=== PATIENT | female | born 1970 | race Caucasian/White ===

== ENCOUNTER → 2017-05-18 09:27 | Outpatient (POV) | payer BC, SELFPAY ==
--- NOTE | 2017-05-18 09:47 | HMH.PAINSOAP ---
[facility] Pain Management SOAP Note Subjective:: Patient's pleasant 46-year-old white female that returns her clinic today with a complaint of extreme right hip pain. She describes the right hip pain as constant, sharp, stabbing, dull, aching patient reports the pain intensifies with sitting. She rates her pain 10/10. Upon examination the patient has extreme point tenderness over the right SI joint. Patient does report some radicular symptoms into the anterior right pelvis as well as right anterior thigh. We discussed right sacroiliitis. We discussed right SI joint injection. We do medically manage the patient with [place] 10 mg 1 p.o. 4 times daily. She reports the [place] does help with the right hip pain to some degree. However, her pain has become extreme over the last week. Objective:: Patient is awake alert oriented ?3. In no acute distress. Flexion extension of the lumbar spine somewhat guarded secondary to pain. Deep tendon reflexes upper and lower extremities normal. Motor strength upper and lower extremities normal. There is no gross sensory deficit. Gait is normal. Assessment:: Degenerative disc disease lumbar spine multiple levels. Lumbar radiculopathy symptoms.. Chronic pain syndrome. Myofascial pain syndrome. Right sacroiliitis. Plan:: I discussed in detail with the patient regarding right sacroiliitis. I discussed in detail with the patient regarding right SI joint injection. I answered her questions. She wishes to proceed. We will schedule this for her today.
--- NOTE | 2017-05-18 09:51 | P.CONS_ITS ---
[facility] Pain Management SOAP Note Subjective:: Patient's pleasant 46-year-old white female that returns her clinic today with a complaint of extreme right hip pain. She describes the right hip pain as constant, sharp, stabbing, dull, aching patient reports the pain intensifies with sitting. She rates her pain 10/10. Upon examination the patient has extreme point tenderness over the right SI joint. Patient does report some radicular symptoms into the anterior right pelvis as well as right anterior thigh. We discussed right sacroiliitis. We discussed right SI joint injection. We do medically manage the patient with [place] 10 mg 1 p.o. 4 times daily. She reports the Benjamin does help with the right hip pain to some degree. However , her pain has become extreme over the last week. Objective:: Patient is awake alert oriented ?3. In no acute distress. Flexion extension of the lumbar spine somewhat guarded secondary to pain. Deep tendon reflexes upper and lower extremities normal. Motor strength upper and lower extremities normal. There is no gross sensory deficit. Gait is normal. Assessment:: Degenerative disc disease lumbar spine multiple levels. Lumbar radiculopathy symptoms.. Chronic pain syndrome. Myofascial pain syndrome. Right sacroiliitis. Plan:: I discussed in detail with the patient regarding right sacroiliitis. I discussed in detail with the patient regarding right SI joint injection. I answered her questions. She wishes to proceed. We will schedule this for her today.
[2017-05-18 09:57] VITALS: BP 150/80; PULSE 103; RESP 18; TEMP 36.6; O2SAT 98; BMI 37.2
== END ==
PROVIDERS: PCP Internal Medicine Adolescent Medicine; Visit Provider Nurse Anesthetist, Certified Registered
DX: M51.16 Intervertebral disc disorders with radiculopathy, lumbar region (principal); G89.4 Chronic pain syndrome; M46.1 Sacroiliitis, not elsewhere classified
CPT/HCPCS: 99212

== ENCOUNTER → 2017-06-08 13:39 | Outpatient (CLI) | payer BC, SELFPAY ==
[2017-06-08 15:13] LABS: Amphetamine/Metha Screen,Urine Negative ng/mL (<1000); Barbiturates Screen,Urine Negative ng/mL (<200); Benzodiazepines Screen,Urine Negative ng/mL (200); Cannabinoid Screen,Urine Negative ng/mL (<50); Cocaine Screen,Urine Negative ng/g (<300); Methadone Screen,Urine Negative ng/mL (<300); Opiate Screen,Urine Positive ng/mL (<300); Phencyclidine Screen,Urine Negative ng/mL (<25)
[2017-06-20 23:07] LABS: Codeine Negative (Cutoff=100); Hydrocodone Positive (.); Hydromorphone Positive (.); Morphine Negative (Cutoff=100)
[2017-06-21 02:16] LABS: Opiates Positive (.)
== END ==
PROVIDERS: PCP Internal Medicine Adolescent Medicine; Visit Provider Anesthesiology
DX: Z79.899 Other long term (current) drug therapy (principal)
CPT/HCPCS: 80305; 80361; G0480

== ENCOUNTER → 2017-06-11 10:41 | Day surgery (SDC) | payer BC, SELFPAY ==
[2017-06-11 10:47] VITALS: BP 152/70; PULSE 97; RESP 18; TEMP 36.4; O2SAT 99; BMI 44.4
[2017-06-11 11:31] VITALS: BP 139/89; PULSE 68; RESP 20
[2017-06-11 11:32] VITALS: BP 140/98; PULSE 78; RESP 20
--- NOTE | 2017-06-11 11:37 | P.PCN_ITS ---
- Procedure Date: 06/11/17 Time: 11:35 Anesthesiologist:: Jean-Pierre Blum MD Complications:: None Pre-procedure Diagnosis:: Sacroiliitis Post-procedure Diagnosis:: Same Indications for Procedure:: This patient is a pleasant 46-year-old white female who we are treating for right sided hip pain. She is tender over her right SI joint. She does have a positive Ayden's test. We will do a right SI joint injection under fluoroscopy. She is also on [place] 10 mg 1 tablet 4 times a day. This does help with her pain symptoms. Her Bishop and urine drug screen have all been appropriate. Procedure Details:: Right SI joint injection under fluoroscopy Informed consent was obtained and the risks and benefits of the procedure was going to the patient. Patient was taken to the procedure room. Patient was placed prone on the procedure table. The right hip was prepped using ChloraPrep. The skin and subcutaneous tissues were anesthetized using lidocaine. I placed a 22-gauge spinal needle into the inferior aspect of the right SI joint. Needle placement was confirmed with dye. After this we injected 5 mL bupivacaine 0.25% and Depo-Medrol 40 mg into the right SI joint. The patient tolerated the procedure well with no complication. Plan and Disposition:: We will follow-up with this patient in 2 weeks. We will reevaluate her symptoms at that time.
[2017-06-11 11:43] VITALS: BP 129/94; PULSE 97; TEMP 36.8; O2SAT 96
== END ==
PROVIDERS: Family Provider Internal Medicine Adolescent Medicine; PCP Internal Medicine Adolescent Medicine; Visit Provider Nurse Anesthetist, Certified Registered
DX: M46.1 Sacroiliitis, not elsewhere classified (principal)
CPT/HCPCS: 27096; G0260; J1040; Q9966

== ENCOUNTER → 2017-06-28 08:50 | Outpatient (POV) | payer BC, SELFPAY ==
[2017-06-28 09:06] VITALS: BP 191/83; PULSE 116; RESP 24; O2SAT 96; BMI 45.0
--- NOTE | 2017-06-28 09:43 | HMH.PAINSOAP ---
[facility] Pain Management SOAP Note Subjective:: 46-year-old white female who present to discuss her latest SI joint injection. Patient states she had 10 days of 80-90% relief after this injection. Patient is currently under a neurologist here she is waiting to get approval for lumbar puncture to rule out MS. Patient rates her pain today a 9 out of 10. She states however after her injection for she was a 3 out of 10. Patient has had a flare in her pain post injection. Patient is unable to take anti-inflammatories due to reaction such as rash. Patient has tried gabapentin in the past with no relief. All movement worsens her pain. Rest helps alleviate it. She is also currently taking [place] 10 mg 1 p.o. 4 times daily. She states that the medication helps her pain 50-60%. She denies any side effects to the medication. She would like to discuss the possibility of an SI joint RFA of her right SI joint. ROS General: no recent weight change, no fever Respiratory: no cough, no shortness of air, no recurring pulmonary infections Cardiovascular/Peripheral Vascular: No chest pain, No palpitations, no edema, no shortness of breath. Gastrointestinal: no incontinence, chronic constipation Genitourinary: Incontinence at times Musculoskeletal: Back pain, SI joint pain Psychiatric: normal mood/ affect Neurological: States he has weakness in bilateral lower extremities, states she has balance issues Objective:: Physical Exam General: Alert and oriented x3, no acute distress, pleasant and cooperative, [on room air] Lungs: Resps E/U, Symmetrical chest expansion Musculoskeletal: Flexion and extension of lumbar spine somewhat guarded secondary to pain, deep tendon reflexes normal, strength in upper and lower extremities [5/5], [abnormal gait noted] Positive Ayden's test right side, extreme point tenderness over right SI Neurological: speech clear, 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 4 times daily we will also call her in a steroid Dosepak due to her flareup in pain. Dr. ADKINS has reviewed her chart and agrees with this plan. We will give HER-2 months worth of prescriptions her Kaspar #[id number] reviewed and appropriate. Her urine drug screen has been appropriate in the past. we will seek approval for right SI joint RFA. Patient has been prescribed a controlled substance after being counseled on the medication, medication safety, and possible side effects. NORMAN report has been obtained and reviewed prior to prescription and found to be appropriate. Opioid contract was reviewed and signed by the patient, and that they have agreed to all of the terms set forth by our compliance program. This note was dictated using voice recognition software may contain errors or omissions.
--- NOTE | 2017-06-28 09:46 | P.CONS_ITS ---
[facility] Pain Management SOAP Note Subjective:: 46-year-old white female who present to discuss her latest SI joint injection. Patient states she had 10 days of 80-90% relief after this injection. Patient is currently under a neurologist here she is waiting to get approval for lumbar puncture to rule out MS. Patient rates her pain today a 9 out of 10. She states however after her injection for she was a 3 out of 10. Patient has had a flare in her pain post injection. Patient is unable to take anti- inflammatories due to reaction such as rash. Patient has tried gabapentin in the past with no relief. All movement worsens her pain. Rest helps alleviate it. She is also currently taking [place] 10 mg 1 p.o. 4 times daily. She states that the medication helps her pain 50-60%. She denies any side effects to the medication. She would like to discuss the possibility of an SI joint RFA of her right SI joint. ROS General: no recent weight change, no fever Respiratory: no cough, no shortness of air, no recurring pulmonary infections Cardiovascular/Peripheral Vascular: No chest pain, No palpitations, no edema, no shortness of breath. Gastrointestinal: no incontinence, chronic constipation Genitourinary: Incontinence at times Musculoskeletal: Back pain, SI joint pain Psychiatric: normal mood/ affect Neurological: States he has weakness in bilateral lower extremities, states she has balance issues Objective:: Physical Exam General: Alert and oriented x3, no acute distress, pleasant and cooperative, [ on room air] Lungs: Resps E/U, Symmetrical chest expansion Musculoskeletal: Flexion and extension of lumbar spine somewhat guarded secondary to pain, deep tendon reflexes normal, strength in upper and lower extremities [5/5], [abnormal gait noted] Positive Ayden's test right side, extreme point tenderness over right SI Neurological: speech clear, 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 4 times daily we will also call her in a steroid Dosepak due to her flareup in pain. Dr. ADKINS has reviewed her chart and agrees with this plan. We will give HER-2 months worth of prescriptions her Kaspar #[id number] reviewed and appropriate. Her urine drug screen has been appropriate in the past. we will seek approval for right SI joint RFA. Patient has been prescribed a controlled substance after being counseled on the medication, medication safety, and possible side effects. NORMAN report has been obtained and reviewed prior to prescription and found to be appropriate. Opioid contract was reviewed and signed by the patient, and that they have agreed to all of the terms set forth by our compliance program. This note was dictated using voice recognition software may contain errors or omissions.
--- NOTE | 2017-06-28 15:15 | PC.PHONENOTE ---
Rx for prednisone 20mg BID x 5 days called in to pt pharmacy per provider order.
--- NOTE | 2017-07-09 14:45 | PC.PHONENOTE ---
called in rx for flexeril 10mg TID prn with 2 refills to [facility] in [place]
== END ==
PROVIDERS: Family Provider Internal Medicine Adolescent Medicine; PCP Internal Medicine Adolescent Medicine; Visit Provider Clinical Nurse Specialist Family Health
DX: M46.1 Sacroiliitis, not elsewhere classified (principal)
CPT/HCPCS: 99212

== ENCOUNTER → 2017-08-09 10:16 | Outpatient (POV) | payer BC, SELFPAY ==
[2017-08-09 10:30] VITALS: BP 157/105; PULSE 66; RESP 24; O2SAT 96; BMI 44.4
--- NOTE | 2017-08-09 11:37 | HMH.PAINSOAP ---
[facility] Pain Management SOAP Note Subjective:: This patient is a 47-year-old white female who presents today after insurance denial of SI joint risotto me. Patient states she is having increased pain. Patient rates her pain a 10 out of 10 today. Patient states she has recently had a traumatic lumbar puncture that showed protein in her cerebral spinal fluid however they are unsure of the source of the protein. Patient states that she has been told she potentially is having constant seizures. She describes a tremor however it is not a visible tremor it is an internal tremor where she feels her internal organs vibrating. She rates she has had this forever. Patient is unable to take Zanaflex due to respiratory depression she states now that she is having the same reaction with Flexeril. Patient states she is having increasing pain where she has to knock herself out . When I asked her what this means she is to she takes muscle relaxers in order to go to sleep. Patient has been seen by Dr. Moreno. I asked the patient if she takes more medication than prescribed. Patient states that at times she will take 2 of her pills. Patient and I discussed that she cannot take more medication than prescribed. Patient states that most of her pain is in her right SI and right piriformis. She states nothing alleviates her pain ROS General: no recent weight change, no fever, no sleep disturbances Respiratory: no cough, no shortness of air, no recurring pulmonary infections Cardiovascular/Peripheral Vascular: No chest pain, No palpitations, no edema, no shortness of breath. Gastrointestinal: no incontinence, normal bowel movements reported Genitourinary: no incontinence Musculoskeletal: Right SI right piriformis pain Psychiatric: normal mood/ affect Neurological: [denies weakness in extremities], [denies balance issues] Objective:: Physical Exam General: Alert and oriented x3, no acute distress, pleasant and cooperative, [on room air] Lungs: Resps E/U, Symmetrical chest expansion, Eyes: PERRL Musculoskeletal: Flexion and extension of lumbar spine somewhat guarded secondary to pain, deep tendon reflexes normal, strength in upper and lower extremities [5/5], slightly antalgic gait, right Ayden's test positive, extreme tenderness over right SI, extreme tenderness on palpation of right piriformis Neurological: 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 He has had some benefit with injections in the past. I gave the patient neurostimulator information for her to review. At this point I do not believe more medication will be beneficial and in fact I believe that we should begin discussing potentially weaning her. I have canceled her Flexeril prescriptions due to her respiratory depression. I do believe we need to pill count this patient at some point. I believe the patient might be also a candidate for biofeedback therapy. This note was dictated using voice recognition software and may contain errors or omissions
--- NOTE | 2017-08-09 11:42 | P.CONS_ITS ---
[facility] Pain Management SOAP Note Subjective:: This patient is a 47-year-old white female who presents today after insurance denial of SI joint risotto me. Patient states she is having increased pain. Patient rates her pain a 10 out of 10 today. Patient states she has recently had a traumatic lumbar puncture that showed protein in her cerebral spinal fluid however they are unsure of the source of the protein. Patient states that she has been told she potentially is having constant seizures. She describes a tremor however it is not a visible tremor it is an internal tremor where she feels her internal organs vibrating. She rates she has had this forever. Patient is unable to take Zanaflex due to respiratory depression she states now that she is having the same reaction with Flexeril. Patient states she is having increasing pain where she has to knock herself out . When I asked her what this means she is to she takes muscle relaxers in order to go to sleep. Patient has been seen by Dr. Moreno. I asked the patient if she takes more medication than prescribed. Patient states that at times she will take 2 of her pills. Patient and I discussed that she cannot take more medication than prescribed. Patient states that most of her pain is in her right SI and right piriformis. She states nothing alleviates her pain ROS General: no recent weight change, no fever, no sleep disturbances Respiratory: no cough, no shortness of air, no recurring pulmonary infections Cardiovascular/Peripheral Vascular: No chest pain, No palpitations, no edema, no shortness of breath. Gastrointestinal: no incontinence, normal bowel movements reported Genitourinary: no incontinence Musculoskeletal: Right SI right piriformis pain Psychiatric: normal mood/ affect Neurological: [denies weakness in extremities], [denies balance issues] Objective:: Physical Exam General: Alert and oriented x3, no acute distress, pleasant and cooperative, [ on room air] Lungs: Resps E/U, Symmetrical chest expansion, Eyes: PERRL Musculoskeletal: Flexion and extension of lumbar spine somewhat guarded secondary to pain, deep tendon reflexes normal, strength in upper and lower extremities [5/5], slightly antalgic gait, right Ayden's test positive, extreme tenderness over right SI, extreme tenderness on palpation of right piriformis Neurological: speech clear, 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 He has had some benefit with injections in the past. I gave the patient neurostimulator information for her to review. At this point I do not believe more medication will be beneficial and in fact I believe that we should begin discussing potentially weaning her. I have canceled her Flexeril prescriptions due to her respiratory depression. I do believe we need to pill count this patient at some point. I believe the patient might be also a candidate for biofeedback therapy. This note was dictated using voice recognition software and may contain errors or omissions
[2017-08-09 13:36] LABS: Amphetamine/Metha Screen,Urine Negative ng/mL (<1000); Barbiturates Screen,Urine Negative ng/mL (<200); Benzodiazepines Screen,Urine Negative ng/mL (200); Cannabinoid Screen,Urine Negative ng/mL (<50); Cocaine Screen,Urine Negative ng/g (<300); Methadone Screen,Urine Negative ng/mL (<300); Opiate Screen,Urine Negative ng/mL (<300); Phencyclidine Screen,Urine Negative ng/mL (<25)
[2017-08-16 03:38] LABS: Opiates Negative (Cutoff=100)
== END ==
PROVIDERS: Family Provider Internal Medicine Adolescent Medicine; PCP Internal Medicine Adolescent Medicine; Visit Provider Clinical Nurse Specialist Family Health
DX: M54.16 Radiculopathy, lumbar region (principal); M79.7 Fibromyalgia; Z79.899 Other long term (current) drug therapy
CPT/HCPCS: 99212; 80305; 80361; 80365; G0480

== ENCOUNTER → 2017-10-12 11:32 | Outpatient (CLI) | payer BC, SELFPAY ==
[2017-10-12 11:36] LABS: Adenovirus F 40/41, stool Not Detected (NotDetected); Astrovirus Not Detected (NotDetected); Campylobacter Not Detected (NotDetected); Clostridium Difficile A/B, PCR Not Detected (NotDetected); Cryptosporidium Not Detected (NotDetected); Cyclospora Cayetanesis Not Detected (NotDetected); Entamoeba histolytica Not Detected (NotDetected); Enteroaggregative E coli Not Detected (NotDetected); Enteropathogenic E coli Not Detected (NotDetected); Enterotoxigenic E coli Not Detected (NotDetected); Giardia lamblia Not Detected (NotDetected); Norovirus Not Detected (NotDetected); Plesimonas Shigalloides, PCR Not Detected (NotDetected); Rotavirus A Not Detected (NotDetected); Salmonella, PCR Not Detected (NotDetected); Sapovirus Not Detected (NotDetected); Shiga-like toxin E coli Not Detected (NotDetected); Shigella Enterovasive E coli Not Detected (NotDetected); Vibrio Cholerae Not Detected (NotDetected); Vibrio, PCR Not Detected (NotDetected); Yersinia Entercolitica, PCR Not Detected (NotDetected)
== END ==
PROVIDERS: Visit Provider Internal Medicine Adolescent Medicine
DX: R19.7 Diarrhea, unspecified (principal)
CPT/HCPCS: 87507

== ENCOUNTER → 2018-05-31 17:15 | Outpatient (CLI) | payer BC, SELFPAY ==
[2018-05-31 17:56] LABS: Basophils % 0.6 % (0.1-2.0); Eosinophils # 0.1 K/mm3 (0.0-0.4); Eosinophils % 2.1 % (0.1-12.0); Hematocrit 45.8 % (37.0-47.0); Hemoglobin 14.7 g/dL (12.2-16.2); Lymphocytes # 2.3 K/mm3 (0.7-4.5); Lymphocytes % 35.7 % (10-50); Mean Corpuscular Hemoglobin 28.7 pg (27.0-31.2); Mean Corpuscular Volume 89.8 fl (81-99); Monocytes # 0.3 K/mm3 (0.1-1.0); Neutrophils # 3.8 K/mm3 (1.8-7.8); Neutrophils % 57.6 % (37.0-80.0); Platelet Count 321 K/mm3 (142-424); Red Cell Distribution Width 13.3 % (11.5-17.5); White Blood Count 6.6 K/mm3 (4.8-10.8)
[2018-05-31 20:58] LABS: Alanine Aminotransferase 61 U/L (12-78); Albumin/Globulin Ratio 1.3 (1.1-1.8); Alkaline Phosphatase 55 U/L (46-116); Anion Gap 15.5 mEq/L (5-15); Aspartate Amino Transferase 34 U/L (15-37); Bilirubin,Total 0.4 mg/dL (0.2-1.0); Blood Urea Nitrogen 10 mg/dL (7-18); Calcium 9.8 mg/dL (8.5-10.1); Carbon Dioxide 27 mmol/L (21.0-32.0); Chloride 102 mmol/L (98-107); Chol/HDL Ratio 6.6 (1-3.5); Cholesterol 317 mg/dL (140-200); Creatinine,Serum 0.71 mg/dL (0.55-1.02); Estimated Glomerular Filt Rate 88 ml/min (>60); Free Thyroxine Index 2.3 ug/dL (5.93-13.13); GFR (African American) 106 ML/MIN (>60); Globulin 3.2 gm/dl (1.3-3.2); Glucose 108 mg/dL (74-106); HDL Cholesterol 48 mg/dL (29-89); LDL Cholesterol 223 mg/dL (0-130); Potassium 4.5 mmoL/L (3.5-5.1); Sodium 140 mmol/L (136-145); T4 (Thyroxine) 7.8 ug/dl (4.7-13.3); Thyroid Stimulating Hormone 1.99 uIU/ml (0.358-3.740); Total Protein,Serum 7.2 gm/dL (6.4-8.2); Triglycerides 230 mg/dL (30-200); Triiodothryronine (T3) Uptake 29 % (31-39); VLDL Cholesterol 46 mg/dL (0-40)
[2018-06-02 13:40] LABS: Vitamin D 25 Hydroxy 22.1 ng/mL (30.0-100.0)
== END ==
PROVIDERS: Visit Provider Internal Medicine Adolescent Medicine
DX: E78.5 Hyperlipidemia, unspecified (principal); E03.9 Hypothyroidism, unspecified; E55.9 Vitamin D deficiency, unspecified
CPT/HCPCS: 36415; 80053; 80061; 82652; 84436; 84443; 84479; 85025

== ENCOUNTER 2018-06-23 10:30 | Outpatient (RCR) | payer BC, SELFPAY | END 2018-06-23 10:35 | disposition home or self-care (01) | LOC: PT 10:30 | PROVIDERS: Visit Provider Family Medicine Sports Medicine | DX: M54.16 Radiculopathy, lumbar region | CPT/HCPCS: 97010; 97014; 97035; 97110; 97140; 97163; G0283 ==

== ENCOUNTER → 2018-09-01 07:03 | Outpatient (CLI) | payer BC, SELFPAY ==
[2018-09-01 07:47] LABS: Basophils # 0.1 K/mm3 (0-0.2); Basophils % 0.8 % (0.1-2.0); Eosinophils # 0.1 K/mm3 (0.0-0.4); Eosinophils % 1.5 % (0.1-12.0); Hematocrit 42.9 % (37.0-47.0); Hemoglobin 14.1 g/dL (12.2-16.2); Lymphocytes # 2.4 K/mm3 (0.7-4.5); Lymphocytes % 35.3 % (10-50); Mean Corpuscular HGB Conc 32.9 g/dL (31.8-35.4); Mean Corpuscular Hemoglobin 29.4 pg (27.0-31.2); Mean Corpuscular Volume 89.4 fl (81-99); Mean Platelet Volume 7.1 fl (7.4-10.4); Monocytes # 0.3 K/mm3 (0.1-1.0); Monocytes % 4.1 % (1.7-9.3); Neutrophils % 58.2 % (37.0-80.0); Platelet Count 299 K/mm3 (142-424); Red Blood Count 4.79 M/mm3 (4.20-5.40); Red Cell Distribution Width 13.2 % (11.5-17.5); White Blood Count 6.9 K/mm3 (4.8-10.8)
[2018-09-01 08:37] LABS: Alanine Aminotransferase 23 U/L (12-78); Albumin Level 3.9 gm/dL (3.4-5.0); Albumin/Globulin Ratio 1.2 (1.1-1.8); Alkaline Phosphatase 48 U/L (46-116); Anion Gap 16.5 mEq/L (5-15); Aspartate Amino Transferase 10 U/L (15-37); Bilirubin,Total 0.3 mg/dL (0.2-1.0); Blood Urea Nitrogen 12 mg/dL (7-18); Calcium 9.8 mg/dL (8.5-10.1); Carbon Dioxide 24 mmol/L (21.0-32.0); Chloride 103 mmol/L (98-107); Cholesterol 281 mg/dL (140-200); Estimated Glomerular Filt Rate 89 ml/min (>60); Free Thyroxine Index 1.9 ug/dL (5.93-13.13); GFR (African American) 108 ML/MIN (>60); Globulin 3.2 gm/dl (1.3-3.2); Glucose 110 mg/dL (74-106); HDL Cholesterol 40 mg/dL (29-89); LDL Cholesterol 182 mg/dL (0-130); Potassium 4.5 mmoL/L (3.5-5.1); Sodium 139 mmol/L (136-145); T4 (Thyroxine) 6.9 ug/dl (4.7-13.3); Thyroid Stimulating Hormone 1.23 uIU/ml (0.358-3.740); Total Protein,Serum 7.1 gm/dL (6.4-8.2); Triglycerides 297 mg/dL (30-200); Triiodothryronine (T3) Uptake 28 % (31-39); VLDL Cholesterol 59 mg/dL (0-40)
[2018-09-01 10:45] LABS: Hemoglobin A1C 6.2 % (0.0-7.0)
[2018-09-03 06:43] LABS: Vitamin D 25 Hydroxy 18.7 ng/mL (30.0-100.0)
== END ==
PROVIDERS: Visit Provider Internal Medicine Adolescent Medicine
DX: R73.9 Hyperglycemia, unspecified (principal); E03.9 Hypothyroidism, unspecified; E55.9 Vitamin D deficiency, unspecified
CPT/HCPCS: 36415; 80053; 80061; 82652; 83036; 84436; 84443; 84479; 85025

== ENCOUNTER → 2021-03-19 15:36 | Outpatient (CLI) | payer BC, SELFPAY ==
--- NOTE | 2021-03-19 15:41 | MM_ITS ---
PROCEDURE INFORMATION: Exam: Bilateral Screening 3D Mammography Exam date and time: 03/19/2021 3:41 PM Age: 50 years old Clinical indication: Screening exam; No personal or family HX of malignancy TECHNIQUE: Imaging protocol: Bilateral screening tomosynthesis and 2D mammography including computer-aided detection (CAD) when performed. COMPARISON: [facility] DIG MAMM-SCREEN JOHN 03/26/2015 8:58 AM FINDINGS: MAMMOGRAPHY: Breast composition: The breast tissue is composed of scattered areas of fibroglandular density. Mass: None. Architectural distortion: None. Calcifications: No suspicious calcifications. Asymmetric density: None. Skin thickening: None. Axillary adenopathy: None. IMPRESSION: No mammographic evidence of malignancy. Annual screening is recommended unless otherwise clinically indicated. ASSESSMENT: BI-RADS Category 1: Negative
== END ==
PROVIDERS: PCP Nurse Practitioner; Visit Provider Nurse Practitioner
DX: Z12.31 Encounter for screening mammogram for malignant neoplasm of breast (principal)
CPT/HCPCS: 77063; 77067

== ENCOUNTER → 2022-01-29 09:12 | Outpatient (CLI) | payer BC, SELFPAY ==
--- NOTE | 2022-01-29 09:21 | US_ITS ---
FINAL REPORT CLINICAL HISTORY: ELEVATED LIVER ENZYMES FINDINGS: ABDOMINAL ULTRASOUND COMPLETE: TECHNIQUE: Ultrasound images of the abdomen were obtained. FINDINGS: The liver is fatty infiltrated. The gallbladder is absent. The common duct is normal. The right kidney measures 12.1 cm in length and is normal in echogenicity without hydronephrosis. The left kidney measures 13.7 cm in length and is normal in echogenicity without hydronephrosis. The spleen is within normal limits. The aorta is normal in caliber. The vena cava is unremarkable. IMPRESSION: Fatty infiltrated liver. Absent gallbladder. Reviewed, Interpreted and Dictated by Genaro Mullen MD Transcribed by Jag Gagnon Authenticated and [facility]
== END ==
PROVIDERS: PCP Nurse Practitioner; Visit Provider Nurse Practitioner
DX: R74.8 Abnormal levels of other serum enzymes (principal)
CPT/HCPCS: 76700

== ENCOUNTER 2022-02-21 17:22 | Emergency (ER) | payer BC, SELFPAY ==
--- NOTE | 2022-02-21 17:50 | XR_ITS ---
PROCEDURE INFORMATION: Exam: XR Right Knee Exam date and time: 02/21/2022 5:47 PM Age: 51 years old Clinical indication: Pain; Knee; Right TECHNIQUE: Imaging protocol: Radiologic exam of the Right knee. Views: 3 views. COMPARISON: US CA venous doppler LE BI 10/12/2018 8:42 AM FINDINGS: Bones/joints: No acute fracture or malalignment. No significant knee joint effusion. Soft tissues: Unremarkable. IMPRESSION: No evidence of acute osseous abnormality in the right knee.
[2022-02-21 18:00] VITALS: BP 141/83; PULSE 91; RESP 19; TEMP 37.1; O2SAT 98; BMI 44.4
--- NOTE | 2022-02-21 18:43 | EXP.UTC ---
Discharge Plan Disposition Patient Disposition: Home, Self-Care Condition: Good Prescriptions Prescriptions: New (DME) cane Device See Rx Instructions .Route Qty: 1 0RF Rx Instructions: As directed No Action metformin 500 mg tablet 500 mg PO DAILY Label Comments: TAKE 1 TABLET BY MOUTH TWICE DAILY WITH MORNING AND EVENING MEALS glipizide 10 mg tablet 10 mg PO DAILY ezetimibe 10 mg tablet 10 mg PO DAILY Referrals Follow up/Referrals: Christie Lord APRN [Primary Care Provider] - See instructions Activity Restrictions/Add. Instructions Additional Instructions/Restrictions: *weight bearing as tolerated *RICE, Rest the extremity, Ice 15-20 minutes 3-4 times daily, Compress- wear the corby wrap as discussed as much as possible to help reduce swelling and pain, Elevate the extremity when at rest *Corby wrap is for support and help control swelling, use it except in the shower. Be sure that is not to tight but not to loose either *Elevate when resting? *Tylenol for pain Immediately follow up with your family doctor for new or worsening of symptoms, or no noticeable improvement over the next 3-5 days Clinical Impressions Clinical Impression: Knee pain Qualifiers: Chronicity: unspecified Laterality: right Qualified Code(s): M25.561 - Pain in right knee Instructions Patient Instructions: DI for Chronic Pain -- Adult, DI for Knee Pain Discharge ED Provider: Lubna Santoyo [facility] General Stated complaint: RIGHT KNEE PAIN Mode of Arrival: Ambulatory Source of Information: Patient Limitations: No Limitations Time Seen by Provider: 02/21/22 18:43 Description of Symptoms (Recalled from Triage Doc. by RN): PATIENT C/O RIGHT KNEE PAIN X 2 WEEKS. NO KNOWN INJURY HEENT Symptoms (Recalled from RN notes): No Resp Symptoms (Recalled from RN notes): No Skin Symptoms (Recalled from RN notes): No MS Symptoms (Recalled from RN notes): Yes Functional Status (Recalled from RN notes): WNL History of Present Illness Provider Complaint: Patient states that she has been having pain in her right knee for about 2 weeks States that she hasnt done anything that she is aware of to hurt her knee but pain started in side of knee area and has continued to get worse States that today it was still hurting so she came in to get it checked Related Data Home Medications Medication Instructions Recorded Confirmed ezetimibe 10 mg tablet 10 mg PO DAILY . 02/21/22 02/21/22 glipizide 10 mg tablet 10 mg PO DAILY Diabetes 02/21/22 02/21/22 metformin 500 mg tablet 500 mg PO DAILY Diabetes 02/21/22 02/21/22 Previous Rx's Medication Instructions Recorded cane #1 ea 02/21/22 Allergies Allergy/AdvReac Type Severity Reaction Status Date / Time ibuprofen [IBUPROFEN] Allergy Intermediate I-ITCHING Verified 10/12/18 06:42 Penicillins Allergy Intermediate FAINTED Verified 10/12/18 06:42 codeine [CODEINE] Allergy Unknown NA-NAUSEA/V Verified 10/12/18 06:42 OMITING pregabalin [From LYRICA] Allergy Unknown BEHAVIORAL Verified 10/12/18 06:42 CHANGES tramadol [TRAMADOL] Allergy Unknown MIGRAINES Verified 10/12/18 06:42 cyclobenzaprine Allergy Verified 10/12/18 06:42 [From Flexeril] Worker's Comp Is this a Worker's Comp case?: No PFSH PFSH Medical History (Updated 02/21/22 @ 18:55 by Lubna Santoyo APRN) Asthma Diabetes mellitus, type 2 History of gastroesophageal reflux (GERD) Hyperlipidemia Surgical History (Updated 02/21/22 @ 18:07 by Haley Munguia RN) History of bilateral carpal tunnel release History of cardiac catheterization History of cholecystectomy History of tonsillectomy History of wisdom tooth extraction Social History (Updated 02/21/22 @ 18:07 by Haley Munguia RN) Smoking Status: Light tobacco smoker tobacco type: cigarettes packs per day: 1 second hand exposure: No alcohol intake: never current occupational status: disabled Travel in
[2022-02-21 19:25] VITALS: BP 141/83; PULSE 91; RESP 19; TEMP 37.1; O2SAT 98
== END 2022-02-21 19:36 | disposition home or self-care (01) ==
PROVIDERS: Emergency Provider Nurse Practitioner; PCP Nurse Practitioner
DX: M25.561 Pain in right knee (principal)
CPT/HCPCS: 73562; 99212; G0463

== ENCOUNTER → 2022-02-24 11:43 | Outpatient (CLI) | payer BC, SELFPAY ==
--- NOTE | 2022-02-24 11:49 | MR_ITS ---
FINAL REPORT CLINICAL HISTORY: PAIN IN RIGHT KNEE x2 weeks. instability in knee. no injury or trauma. FINDINGS: Multiplanar MR imaging of the right knee was performed without contrast. There is medial and lateral meniscal degeneration without a definite tear. The anterior and posterior cruciate ligaments are intact. The medial collateral ligament and lateral ligamentous complex are intact. The patellar and quadriceps tendons are intact. There are foci of patellar tendinitis. There is bone bruise/marrow edema in the medial femoral condyle with small osteochondral lesion or osteochondral fracture medially measuring 4 mm in transverse dimension. There is mild lateral patellar subluxation. There is moderate patellar chondromalacia. Small joint effusion is seen. The musculature is intact. No soft tissue mass or cyst is identified. IMPRESSION: Osteochondral lesion or osteochondral fracture of the medial femoral condyle. Moderate patellar chondromalacia. Medial and lateral meniscal degeneration without a definite tear. Reviewed, Interpreted and Dictated by Meño Diggs III, MD Transcribed by Lee Ann Pino Authenticated and [facility]
== END ==
PROVIDERS: PCP Nurse Practitioner; Visit Provider Nurse Practitioner
DX: M25.561 Pain in right knee (principal)
CPT/HCPCS: 73721

== ENCOUNTER 2022-03-24 09:00 | Outpatient (RCR) | payer BC, SELFPAY | END 2022-03-24 09:05 | disposition home or self-care (01) | LOC: PT 09:00 | PROVIDERS: PCP Nurse Practitioner; Visit Provider Orthopaedic Surgery | DX: M25.561 Pain in right knee (principal); M87.861 Other osteonecrosis, right tibia | CPT/HCPCS: 97010; 97014; 97110; 97163; G0283 ==

== ENCOUNTER 2022-04-21 08:09 | Emergency (ER) | payer BC, SELFPAY ==
[2022-04-21 08:49] VITALS: BP 144/79; PULSE 87; RESP 16; TEMP 37.2; O2SAT 98; BMI 45.1
--- NOTE | 2022-04-21 09:06 | EXP.UTC ---
Discharge Plan Disposition Patient Disposition: Home, Self-Care Condition: Good Prescriptions Prescriptions: No Action metformin 500 mg tablet 500 mg PO DAILY Label Comments: TAKE 1 TABLET BY MOUTH TWICE DAILY WITH MORNING AND EVENING MEALS glipizide 10 mg tablet 10 mg PO DAILY ezetimibe 10 mg tablet 10 mg PO DAILY (DME) cane Device See Rx Instructions .Route Qty: 1 0RF Rx Instructions: As directed Referrals Follow up/Referrals: Christie Lord APRN [Primary Care Provider] - See instructions Activity Restrictions/Add. Instructions Additional Instructions/Restrictions: covid/ flu swab was sent to lab, call later today for results. self isolate until test results are known to be negative No sign of a bacterial infection. Likely viral. Viruses can take 7-14 days to run their course. Nasal saline and bulb syringe or nose Soila to remove nasal drainage to help with nasal congestion. Hard to eat, drink, sleep with nasal congestion so important to keep this cleaned out. Monitor temp. Tylenol or Motrin as needed for pain or fever Encourage fluids, water, Gatorade, Powerade, Pedialyte if infant/toddler/child Warm salt water gargles Warm fluids Sore throat lozenges Sleep elevated Humidifier/vaporizer Follow-up immediately for new or worsening symptoms or no noticeable improvement over the next 48-72 hours. Clinical Impressions Clinical Impression: Upper respiratory infection, viral Instructions Patient Instructions: DI for Viral Upper Respiratory Infection -- Adult Discharge ED Provider: Luli ([facility])Dustin [facility] [place] [facility] [place] General Stated complaint: Fever, cough, wheezing, exposure covid/flu/rsv Mode of Arrival: Ambulatory Source of Information: Patient Limitations: No Limitations Time Seen by Provider: 04/21/22 09:07 Description of Symptoms (Recalled from Triage Doc. by RN): pt comes in with c/o fever, cough, chills, body aches, congestion, sore throat. symptoms began sat night. pt works at [employer], and has had covid exposure. HEENT Symptoms (Recalled from RN notes): Yes Resp Symptoms (Recalled from RN notes): Yes Skin Symptoms (Recalled from RN notes): No MS Symptoms (Recalled from RN notes): No Functional Status (Recalled from RN notes): n/a History of Present Illness Provider Complaint: 51 yr old female presents c/o fever, cough, chills, body aches, congestion, sore throat. symptoms began sat night. pt works at [employer], and has had covid exposure. Related Data Home Medications Medication Instructions Recorded Confirmed ezetimibe 10 mg tablet 10 mg PO DAILY . 02/21/22 02/21/22 glipizide 10 mg tablet 10 mg PO DAILY Diabetes 02/21/22 02/21/22 metformin 500 mg tablet 500 mg PO DAILY Diabetes 02/21/22 02/21/22 Previous Rx's Medication Instructions Recorded cane #1 ea 02/21/22 Allergies Allergy/AdvReac Type Severity Reaction Status Date / Time ibuprofen [IBUPROFEN] Allergy Intermediate I-ITCHING Verified 04/21/22 08:58 Penicillins Allergy Intermediate FAINTED Verified 04/21/22 08:58 codeine [CODEINE] Allergy Unknown NA-NAUSEA/V Verified 04/21/22 08:58 OMITING pregabalin [From LYRICA] Allergy Unknown BEHAVIORAL Verified 04/21/22 08:58 CHANGES tramadol [TRAMADOL] Allergy Unknown MIGRAINES Verified 04/21/22 08:58 cyclobenzaprine Allergy Verified 04/21/22 08:58 [From Flexeril] Worker's Comp Is this a Worker's Comp case?: No [facility] Disclaimer: The information contained in this section may have been updated after the patient was seen, as this information can be updated by other users. Medical History (Reviewed 04/21/22 @ 09:12 by Dustin Rockwell ([facility]), PROCEDURE MANAGER) Asthma Diabetes mellitus, type 2 History of gastroesophageal reflux (GERD) Hyperlipidemia Surgical History (Reviewed 04/21/22 @ 09:12 by Dustin Rockwell ([facility]), PROCEDURE MANAGER) History of bilateral carpal tunnel release History of cardiac catheterization History of cholecystectom
[2022-04-21 09:08] LABS: UTC Strep Screen (Rapid) Negative (Negative)
[2022-04-21 09:15] VITALS: BP 144/79; PULSE 87; RESP 16; TEMP 37.2
[2022-04-21 09:29] LABS: Coronavirus 19, PCR Not Detected (NotDetected); Influenza B, PCR Not Detected (NotDetected)
[2022-04-21 10:18] LABS: Influenza A, PCR Detected (NotDetected)
== END 2022-04-21 09:21 | disposition home or self-care (01) ==
PROVIDERS: Emergency Provider Nurse Practitioner Family; PCP Nurse Practitioner
DX: J10.1 Influenza due to other identified influenza virus with other respiratory manifestations (principal)
CPT/HCPCS: 87880; 99212; C9803; G0463; U0003; U0005

== ENCOUNTER 2023-03-13 08:41 | Emergency (ER) | payer BC, SELFPAY ==
[2023-03-13] VITALS (9 sets, daily range): BP systolic 113–141; BP diastolic 40–94; PULSE 75–88; RESP 16–24; TEMP 36.5–36.7; O2SAT 94–98; BMI 41.0
--- NOTE | 2023-03-13 08:40 | ECG_ITS ---
APPROVED REPORT Exam: Resting ECG HR:86 bpm ECG Measurements Heart Rate 86 AXES FL 132 P 62 QRSd 151 QRS 14 QT 368 T -6 QTc 412 Conclusion SINUS RHYTHM RIGHT BUNDLE BRANCH BLOCK [120+ ms QRS DURATION, UPRIGHT V1, 40+ ms S IN I/aVL/V4/V5/V6] ABNORMAL ECG INTERPRETATION BASED ON A DEFAULT AGE OF 40 YEARS UNCONFIRMED REPORT Electronically signed by : Donavan Melvin MD 03/13/2023 16:52:43
--- NOTE | 2023-03-13 08:47 | XR_ITS ---
PROCEDURE INFORMATION: Exam: XR Chest Exam date and time: 03/13/2023 9:08 AM Age: 52 years old Clinical indication: Dyspnea and other: Chest pain TECHNIQUE: Imaging protocol: Radiologic exam of the chest. Views: 1 view. COMPARISON: CR Chest 10/12/2018 5:04 AM FINDINGS: Lungs: No focal airspace disease. Pleural spaces: Unremarkable. No pleural effusion. No pneumothorax. Heart/Mediastinum: Cardiomediastinal silhouette is within normal limits. Bones/joints: Unremarkable. IMPRESSION: No acute cardiopulmonary abnormality.
--- NOTE | 2023-03-13 08:48 | HMH.EDGENADL ---
Discharge Plan Disposition Patient Disposition: Home, Self-Care Prescriptions Prescriptions: No Action metformin 500 mg tablet 500 mg PO DAILY Patient Comments: TAKE 1 TABLET BY MOUTH TWICE DAILY WITH MORNING AND EVENING MEALS glipizide 10 mg tablet 10 mg PO DAILY ezetimibe 10 mg tablet 10 mg PO DAILY (DME) cane Device See Rx Instructions .Route Qty: 1 0RF Rx Instructions: As directed oseltamivir [Tamiflu] 75 mg capsule 75 mg PO BID Qty: 10 0RF Referrals Follow up/Referrals: Pavan Kent MD [Staff Physician] - See instructions Activity Restrictions/Add. Instructions Additional Instructions/Restrictions: I suspect that your symptoms are on the GERD/peptic ulcer disease spectrum. Return with any blood in your stool or vomit otherwise follow-up with Dr. Osei or with a heel seat pounder to get an outpatient endoscopy. No evidence of any cardiopulmonary emergency today. Clinical Impressions Clinical Impression: Epigastric abdominal pain Discharge ED Provider: Arnav Ferrari General Adult HPI General Chief complaint: Chest Pain Stated complaint: chest pain Time Seen by Provider: 03/13/23 08:46 History of Present Illness HPI narrative: Patient is a 52-year-old female with a history of diabetes who presents today with epigastric abdominal discomfort. She states this began several days ago and she had a very short duration episode however the last 12 hours she has had progressively worsening discomfort that she states is significantly worse with any type of swallowing eating or drinking. She has a history of GERD but has been a long time since she had any symptoms associated with it. She also had her gallbladder moved 28 years ago and had 1 episode of pancreatitis but has not had any episodes of pancreatitis since that time. She has no history of coronary disease in fact she had a negative heart cath and a stress test years ago. She has not had any exertional chest pain shortness of breath or significant diaphoresis associated with this. She also has no significant nausea associated with this. Related Data Home Medications Medication Instructions Recorded Confirmed ezetimibe 10 mg tablet 10 mg PO DAILY . 02/21/22 03/13/23 glipizide 10 mg tablet 10 mg PO DAILY Diabetes 02/21/22 03/13/23 metformin 500 mg tablet 500 mg PO DAILY Diabetes 02/21/22 03/13/23 Previous Rx's Medication Instructions Recorded cane #1 ea 02/21/22 oseltamivir 75 mg capsule (Tamiflu) 75 mg PO BID #10 caps 12/14/22 Allergies Allergy/AdvReac Type Severity Reaction Status Date / Time ibuprofen [IBUPROFEN] Allergy Intermediate I-ITCHING Verified 03/13/23 08:56 Penicillins Allergy Intermediate FAINTED Verified 03/13/23 08:56 codeine [CODEINE] Allergy Unknown NA-NAUSEA/V Verified 03/13/23 08:56 OMITING pregabalin [From LYRICA] Allergy Unknown BEHAVIORAL Verified 03/13/23 08:56 CHANGES tramadol [TRAMADOL] Allergy Unknown MIGRAINES Verified 03/13/23 08:56 cyclobenzaprine Allergy Verified 03/13/23 08:56 [From Flexeril] [facility] Disclaimer: The information contained in this section may have been updated after the patient was seen, as this information can be updated by other users. 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
--- NOTE | 2023-03-13 08:51 | PC.NURSE ---
RAD at for CXR
--- NOTE | 2023-03-13 08:55 | PC.NURSE ---
portable xray at bedside
[2023-03-13 08:58] LABS: Basophils # 0.1 K/mm3 (0-0.2); Basophils % 0.6 % (0.1-2.0); Eosinophils # 0.2 K/mm3 (0.0-0.4); Eosinophils % 1.9 % (0.1-12.0); Hematocrit 43.4 % (37.0-47.0); Hemoglobin 14.7 g/dL (12.2-16.2); Lymphocytes # 3.9 K/mm3 (0.7-4.5); Lymphocytes % 34.3 % (10-50); Mean Corpuscular HGB Conc 33.8 g/dL (31.8-35.4); Mean Corpuscular Hemoglobin 30.1 pg (27.0-31.2); Mean Corpuscular Volume 88.9 fl (81-99); Mean Platelet Volume 7.8 fl (7.4-10.4); Monocytes # 0.5 K/mm3 (0.1-1.0); Monocytes % 4.2 % (1.7-9.3); Neutrophils # 6.7 K/mm3 (1.8-7.8); Platelet Count 275 K/mm3 (142-424); Red Blood Count 4.88 M/mm3 (4.20-5.40); Red Cell Distribution Width 13.7 % (11.5-17.5); White Blood Count 11.4 K/mm3 (4.8-10.8)
[2023-03-13 09:02] LABS: Chloride 105 mmol/L (98-107)
[2023-03-13 09:03] LABS: Potassium 3.9 mmoL/L (3.5-5.1); Sodium 138 mmol/L (136-145)
[2023-03-13 09:06] LABS: Alanine Aminotransferase 22 U/L (12-78); Albumin Level 4.9 g/dl (3.5-5.0); Albumin/Globulin Ratio 1.5 (1.1-1.8); Alkaline Phosphatase 61 U/L (38-126); Anion Gap 10.9 mEq/L (5-15); Aspartate Amino Transferase 27 U/L (14-36); Bilirubin,Total 0.3 mg/dl (0.2-1.3); Blood Urea Nitrogen 15 mg/dl (7-17); Calcium 9.6 mg/dl (8.4-10.2); Carbon Dioxide 26 mmol/L (22.0-30.0); Creatinine Clearance Estimated 197 mL/min (50-200); Estimated Glomerular Filt Rate 105 ml/min (>60); GFR (African American) 127 ML/MIN (>60); Globulin 3.3 g/dL (1.3-3.2); Glucose 103 mg/dl (74-100); Lipase 201 U/L (23-300); Total Protein,Serum 8.2 g/dl (6.3-8.2)
[2023-03-13 09:18] LABS: Troponin I < 0.01 ng/ml (0.00-0.034)
--- NOTE | 2023-03-13 10:36 | PC.NURSE ---
Pt ambulatory to bathroom and back to bed. Pt advised her head was hurting and she was nauseous at this time. Dr. Ferrari made aware.
--- NOTE | 2023-03-13 10:37 | PC.NURSE ---
er md aware of pt having a headache and nauseous.
--- NOTE | 2023-03-13 10:48 | PC.NURSE ---
Dr. Ferrari at BS to update pt on POC
--- NOTE | 2023-03-13 10:54 | CT_ITS ---
PROCEDURE INFORMATION: Exam: CT Abdomen And Pelvis With Contrast Exam date and time: 03/13/2023 11:09 AM Age: 52 years old Clinical indication: Abdominal pain; Epigastric; Additional info: Refractory epigastric abd pain TECHNIQUE: Imaging protocol: Computed tomography of the abdomen and pelvis with contrast. Radiation optimization: All CT scans at this facility use at least one of these dose optimization techniques: automated exposure control; mA and/or kV adjustment per patient size (includes targeted exams where dose is matched to clinical indication); or iterative reconstruction. Contrast material: ISOVUE 370; Contrast volume: 75 ml; Contrast route: IV; REPORTING DATA: Count of CT and Cardiac NM exams in prior 12 months: This patient has received 0 known CTs and 0 known cardiac nuclear medicine studies in the 12 months prior to the current study. COMPARISON: US ABDOMEN COMPLETE 01/29/2022 9:30 AM FINDINGS: Tubes, catheters and devices: Fallopian tube occlusion devices are seen. Liver: Normal. No mass. Gallbladder and bile ducts: Cholecystectomy. Pancreas: Normal. No ductal dilation. Spleen: Normal. No splenomegaly. Adrenal glands: Normal. No mass. Kidneys and ureters: Small right renal cyst. No hydronephrosis. Stomach and bowel: Colonic diverticulosis without evidence of diverticulitis. No bowel obstruction. Appendix: No evidence of appendicitis. Intraperitoneal space: Unremarkable. No free air. No significant fluid collection. Vasculature: Unremarkable. No abdominal aortic aneurysm. Lymph nodes: Unremarkable. No enlarged lymph nodes. Urinary bladder: Unremarkable as visualized. Reproductive: Unremarkable as visualized. Bones/joints: Postsurgical changes at L5-S1. Soft tissues: Unremarkable. IMPRESSION: No acute findings. COMMENTS: Consistent with the [employer]'s Incidental Findings Committee white paper (J Am Hamilton Radiol 2018): Any incidental renal lesion less than 1 cm or classified as too small to characterize, or any incidental cystic renal lesion characterized as simple-appearing, is likely benign. No follow-up imaging is recommended for these lesions per consensus recommendations based on imaging criteria.
== END 2023-03-13 12:41 | disposition home or self-care (01) ==
PROVIDERS: Emergency Provider Student in an Organized Health Care Education/Training Program; PCP Nurse Practitioner
DX: R10.13 Epigastric pain (principal); I45.19 Other right bundle-branch block; E11.9 Type 2 diabetes mellitus without complications; E78.5 Hyperlipidemia, unspecified; F17.210 Nicotine dependence, cigarettes, uncomplicated; J45.909 Unspecified asthma, uncomplicated; Z79.84 Long term (current) use of oral hypoglycemic drugs
CPT/HCPCS: 71045; 74177; 80053; 83690; 84484; 85025; 93005; 96361; 96374; 96375; 99285; J0131

== ENCOUNTER 2023-03-19 11:38 | Emergency (ER) | payer BC, SELFPAY ==
--- NOTE | 2023-03-19 11:48 | EXP.UTC ---
Discharge Plan Disposition Patient Disposition: Home, Self-Care Condition: Good Prescriptions Prescriptions: New cefdinir 300 mg capsule 300 mg PO BID Qty: 20 0RF prednisone 20 mg tablet 20 mg PO BID Qty: 10 0RF ofloxacin 0.3 % drops See Rx Instructions .ROUTE .COMPLEX Qty: 10 0RF Rx Instructions: put 1-2 drps into affected eye(s) every 2-4 h x 2 days, then 1-2 drps 4 times/day days 3-7 promethazine-DM 6.25-15 mg/5 mL syrup 5 ml PO Q6H PRN (Reason: Cough) Qty: 180 0RF No Action metformin 500 mg tablet 500 mg PO DAILY Patient Comments: TAKE 1 TABLET BY MOUTH TWICE DAILY WITH MORNING AND EVENING MEALS glipizide 10 mg tablet 10 mg PO DAILY ezetimibe 10 mg tablet 10 mg PO DAILY (DME) cane Device See Rx Instructions .Route Qty: 1 0RF Rx Instructions: As directed oseltamivir [Tamiflu] 75 mg capsule 75 mg PO BID Qty: 10 0RF Referrals Follow up/Referrals: Christie Lord APRN [Primary Care Provider] - See instructions Clinical Impressions Clinical Impression: Conjunctivitis, Otitis media Instructions Patient Instructions: DI for Conjunctivitis Discharge ED Provider: Shikha Lord [facility] [place] General Stated complaint: congestion, sore throat, cough, eye drainage Time Seen by Provider: 03/19/23 12:02 History of Present Illness Provider Complaint: Cough X 2 weeks. Ear pain, sore throat, eye drainage X 2-3 days. Both eyes matted shut this am. No fever. Headache when she coughs. Zyrtec, Benadryl, Sudafed have not helped. Onset (ago): day(s) (3) Location: head, eyes and chest Relieving factors: none Exacerbating factors: none Associated symptoms: denies other symptoms Treatments prior to arrival: other (Zyrtec, Benadryl, Sudafed) Related Data Home Medications Medication Instructions Recorded Confirmed ezetimibe 10 mg tablet 10 mg PO DAILY . 02/21/22 03/13/23 glipizide 10 mg tablet 10 mg PO DAILY Diabetes 02/21/22 03/13/23 metformin 500 mg tablet 500 mg PO DAILY Diabetes 02/21/22 03/13/23 Previous Rx's Medication Instructions Recorded cane #1 ea 02/21/22 oseltamivir 75 mg capsule (Tamiflu) 75 mg PO BID #10 caps 04/22/22 cefdinir 300 mg capsule 300 mg PO BID #20 caps 03/19/23 ofloxacin 0.3 % eye drops See Rx Instructions ophthalmic 03/19/23 (eye) .COMPLEX #10 mL prednisone 20 mg tablet 20 mg PO BID #10 tabs 03/19/23 promethazine-DM 6.25 mg-15 mg/5 mL 5 ml PO Q6H PRN Cough #180 mL 03/19/23 oral syrup Allergies Allergy/AdvReac Type Severity Reaction Status Date / Time ibuprofen [IBUPROFEN] Allergy Intermediate I-ITCHING Verified 03/13/23 08:56 Penicillins Allergy Intermediate FAINTED Verified 03/13/23 08:56 codeine [CODEINE] Allergy Unknown NA-NAUSEA/V Verified 03/13/23 08:56 OMITING pregabalin [From LYRICA] Allergy Unknown BEHAVIORAL Verified 03/13/23 08:56 CHANGES tramadol [TRAMADOL] Allergy Unknown MIGRAINES Verified 03/13/23 08:56 cyclobenzaprine Allergy Verified 03/13/23 08:56 [From Flexeril] furosemide [From Lasix] Allergy Verified 03/19/23 11:58 gabapentin Allergy Verified 03/19/23 11:58 PFSH PFS Disclaimer: The information contained in this section may have been updated after the patient was seen, as this information can be updated by other users. 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
[2023-03-19 11:50] VITALS: BP 168/88; PULSE 99; RESP 20; TEMP 37; O2SAT 95; BMI 40.5
[2023-03-19 12:03] LABS: UTC Strep Screen (Rapid) Negative (Negative)
[2023-03-19 12:08] LABS: Coronavirus 19, PCR Not Detected (NotDetected); Influenza A, PCR Not Detected (NotDetected); Influenza B, PCR Not Detected (NotDetected)
[2023-03-19 12:12] VITALS: BP 168/88; PULSE 99; RESP 20; TEMP 37; O2SAT 95
== END 2023-03-19 12:30 | disposition home or self-care (01) ==
PROVIDERS: Emergency Provider Physician Assistant; PCP Nurse Practitioner
DX: H66.93 Otitis media, unspecified, bilateral (principal); H10.33 Unspecified acute conjunctivitis, bilateral; R05.9 Cough, unspecified; R07.0 Pain in throat; R09.81 Nasal congestion; F17.210 Nicotine dependence, cigarettes, uncomplicated; J45.909 Unspecified asthma, uncomplicated; E11.9 Type 2 diabetes mellitus without complications; E78.5 Hyperlipidemia, unspecified; Z79.84 Long term (current) use of oral hypoglycemic drugs
CPT/HCPCS: 87636; 87880; 99212; 99214; G0463

== ENCOUNTER 2023-03-23 07:06 | Day surgery (SDC) | payer BC, SELFPAY ==
[2023-03-23 07:42] VITALS: BP 173/84; PULSE 70; RESP 18; TEMP 36.1; O2SAT 96; BMI 40.5
--- NOTE | 2023-03-23 07:56 | P.PNANES_ITS ---
[facility] Disclaimer: The information contained in this section may have been updated after the patient was seen, as this information can be updated by other users. Medical History Asthma Diabetes mellitus, type 2 History of gastroesophageal reflux (GERD) History of transient ischemic attack (TIA) Hyperlipidemia Surgical History History of bilateral carpal tunnel release History of cardiac catheterization History of cholecystectomy History of tonsillectomy History of wisdom tooth extraction Family History Other Family history of cancer Family history of myocardial infarction Social History Smoking Status: Current some day smoker tobacco type: cigarettes packs per day: 1 second hand exposure: No alcohol intake: never substance use type: denies use current occupational status: disabled Travel in the last 8 weeks: None household members: family housing: house 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: Yes [facility] Anesthesia Checklist Patient Identification Patient Identification: Arm Band and Verbal (Name & ) Structural Data Admitted From: Home Planned Operative Procedure/s: EGD Consent for Planned Operative Procedure(s) Verified: Yes Verified Documents: Surgical Consent NPO Status Verified Time NPO: 00:00 Additional verifications Anesthesia Reactions: No Airway Assessment Mallampati Score:: Class II C-Spine Mobility Assessed: Yes TMJ Mobility Assessed: Yes Dentition: Good Dentition (One chipped tooth) Neurological Assessment Level of Consciousness: Awake Hx Seizures: No Numbness or tingling in extremities: No Anesthesia Plan Anesthesia Risk discussed: Yes Anesthesia Plan: Verified ASA Class: III Anesthesia Type: MAC
--- NOTE | 2023-03-23 07:57 | HMH.SCOPE ---
Procedure: Date: 03/23/23 Patient Date of :: 1970 Procedure Performed:: Esophagogastroduodenoscopy with biopsy Indications:: Epigastric pain Performing Provider:: Pavan Kent MD Referring Provider:: . Sedation:: Monitored anesthesia care Procedure:: After informed consent was obtained the patient was taken to the endoscopy suite. Sedation ensued after the patient was transferred to the left lateral decubitus position. Pulse, blood pressure, and oxygen saturation were monitored throughout the procedure. The endoscope was advanced beyond the duodenal bulb. Retroflexion within the gastric lumen was accomplished. The gastroscope was carefully removed and the patient was transferred to recovery in stable condition. Please see findings and specimens below for detail. Findings:: Mild scattered esophageal varices Fairly small sliding hiatal hernia Mild to moderate patchy gastritis distally Specimens:: Antral biopsy Recommendations:: Follow-up pathology Consider UGI/SBFT Complications:: No immediate Estimated blood obtained (mL): 1 Colonoscopy Component Colonoscopy Component Was a colonoscopy performed during today's procedure?: No
[2023-03-23 07:58] VITALS: O2SAT 96
[2023-03-23 08:14] VITALS: BP 145/80; PULSE 73; RESP 18; TEMP 36.5; O2SAT 94
[2023-03-23 08:24] VITALS: BP 123/71; PULSE 70; RESP 18; O2SAT 97
[2023-03-23 08:34] VITALS: BP 105/55; PULSE 79; RESP 18; O2SAT 99
[2023-03-23 08:44] VITALS: BP 110/76; PULSE 72; RESP 18; O2SAT 99
[2023-03-23 10:29] LABS: POC Glucose,Bedside 105 (70-110)
== END 2023-03-23 08:46 | disposition home or self-care (01) ==
PROVIDERS: PCP Nurse Practitioner; Visit Provider Surgery
PROC: 0DJ08ZZ Inspection of Upper Intestinal Tract, Via Natural or Artificial Opening Endoscopic (ICD-10-PCS; CPT 43235; principal; 2023-03-23 08:00)
DX: I85.00 Esophageal varices without bleeding (principal); K44.9 Diaphragmatic hernia without obstruction or gangrene; K29.50 Unspecified chronic gastritis without bleeding; E11.9 Type 2 diabetes mellitus without complications
CPT/HCPCS: 43239; 82962; J2704

== ENCOUNTER 2023-07-15 08:36 | Outpatient (CLI) | payer BC, SELFPAY ==
--- NOTE | 2023-07-15 08:59 | MR_ITS ---
FINAL REPORT CLINICAL HISTORY: HEADACHES vision disturbance on left eye off balance hx of tia 20 ml prohance given COMPARISON: 07/07/2016 FINDINGS: Multiplanar MR imaging of the brain was performed without and with contrast. There is no evidence of intracranial hemorrhage or mass. There are small foci of increased signal in the periventricular and subcortical white matter, most compatible with mild chronic ischemic/gliotic microvascular change, stable since the prior MR of 2016. No abnormal extra-axial fluid collection is seen. The ventricular size is within normal limits. There is no evidence of shift of the midline structures. The posterior fossa and brainstem have an unremarkable appearance. No area of abnormal restricted diffusion is identified. No abnormal contrast enhancement is seen. Normal major vessel vascular flow voids are noted. Small retention cysts or polyps are present in the maxillary sinuses bilaterally. IMPRESSION: No acute intracranial abnormality identified. Mild chronic ischemic/gliotic microvascular change, stable since the prior MRI of 2016. Reviewed, Interpreted and Dictated by Meño Diggs III, MD Transcribed by Amy Dumont Authenticated and [facility]
[2023-07-15 09:09] LABS: Blood Urea Nitrogen 18 mg/dl (7-17); Estimated Glomerular Filt Rate 65 ml/min (>60); GFR (African American) 79 ML/MIN (>60)
[2023-07-15] MEDS: GADOTERIDOL INJ 17ML SYRINGE 25 ML IV (10:10)
[2023-07-15] MEDS: SODIUM CHLORIDE 0.9% 10ML SYR (RAD ONLY) 10 ML IV (10:10)
== END 2023-07-15 23:59 ==
LOC: RAD 08:36
PROVIDERS: Nurse Practitioner Family; PCP Nurse Practitioner; Visit Provider Nurse Practitioner
DX: R42 Dizziness and giddiness (principal); R51.9 Headache, unspecified; H53.10 Unspecified subjective visual disturbances
CPT/HCPCS: 36415; 70553; 82565; 84520; A9576

== ENCOUNTER 2023-07-21 17:16 | Emergency (ER) | payer BC, SELFPAY ==
--- NOTE | 2023-07-21 17:26 | XR_ITS ---
PROCEDURE INFORMATION: Exam: XR Right Ankle Exam date and time: 07/21/2023 5:29 PM Age: 52 years old Clinical indication: Pain; Ankle and foot; Right TECHNIQUE: Imaging protocol: Radiologic exam of the right ankle. Views: 3 or more views. COMPARISON: CR Foot R 07/21/2023 5:28 PM FINDINGS: Bones/joints: Osseous alignment is normal. No acute fracture or significant arthritic change. Moderate plantar calcaneal spurring noted. Soft tissues: Normal. IMPRESSION: No acute abnormality
--- NOTE | 2023-07-21 17:26 | XR_ITS ---
PROCEDURE INFORMATION: Exam: XR Right Foot Exam date and time: 07/21/2023 5:28 PM Age: 52 years old Clinical indication: Pain; Ankle and foot; Right TECHNIQUE: Imaging protocol: Radiologic exam of the right foot. Views: 3 or more views. COMPARISON: MR KNEE RT WO CON 02/24/2022 12:11 PM FINDINGS: Bones/joints: Osseous alignment is normal. No acute fracture or significant arthritic change. Moderate plantar calcaneal spurring noted. Soft tissues: Normal. IMPRESSION: No acute abnormality
[2023-07-21 18:00] VITALS: BP 158/70; PULSE 91; RESP 18; TEMP 36.8; O2SAT 96; BMI 42.9
--- NOTE | 2023-07-21 18:08 | ED_ITS ---
Discharge Plan Disposition Patient Disposition: Home, Self-Care Condition: Good Prescriptions Prescriptions: No Action metformin 1,000 mg tablet 1,000 mg PO BID acetaminophen 500 mg tablet 500 mg PO Q6H PRN famotidine [Pepcid] 20 mg tablet 20 mg PO BID albuterol sulfate 90 mcg/actuation HFA aerosol inhaler inhalation peg 3350-electrolytes [GaviLyte-G] 236-22.74-6.74 -5.86 gram recon soln 240 ml PO Q10M Qty: 4000 0RF Rx Instructions: follow mailed instructions (DME) cane Device See Rx Instructions .Route Qty: 1 0RF Rx Instructions: As directed Referrals Follow up/Referrals: Christie Lord APRN [Primary Care Provider] - See instructions Myra Moran DPM [Staff Physician] - See instructions Activity Restrictions/Add. Instructions Additional Instructions/Restrictions: Rest the extremity, Elevate the extremity as tolerated while you are resting. Take tylenol for pain. Follow up with Dr. Moran (podiatry). I put in a referral but you need to call her office and schedule an appointment. Her office phone number will be on this paper work, please call her office in the morning to get an appointment. Follow up with your regular doctor. GO TO THE ER FOR ANY WORSENING SYMPTOMS Clinical Impressions Clinical Impression: Right foot sprain, Right foot pain Stand Alone Forms Stand Alone Forms: Work/School Release Instructions Patient Instructions: DI for Foot Sprain, How to Use a Walking Boot Discharge ED Provider: Eric Romeo [facility] General Stated complaint: AO fell and hurt right foot Time Seen by Provider: 07/21/23 18:07 History of Present Illness Provider Complaint: She states that she got up and tripped over something this morning and twisted her left foot and ankle. This caused her to fall. Since then she has had right foot and ankle pain and swelling. She has bruising across the top that foot near the base of her toes. Her pain is worse with walking and bearing weight. She denies any other injury or complaints. Related Data Home Medications Medication Instructions Recorded Confirmed acetaminophen 500 mg tablet 500 mg PO Q6H PRN 06/10/23 06/10/23 albuterol sulfate 90 mcg/actuation inhalation 06/10/23 06/10/23 aerosol inhaler famotidine 20 mg tablet (Pepcid) 20 mg PO BID 06/10/23 06/10/23 metformin 1,000 mg tablet 1,000 mg PO BID 06/10/23 06/10/23 Previous Rx's Medication Instructions Recorded cane #1 ea 02/21/22 peg 3350-electrolytes 236 240 ml PO Q10M #4,000 mL 07/21/23 gram-22.74 gram-6.74 gram-5.86 gram solution (GaviLyte-G) Allergies Allergy/AdvReac Type Severity Reaction Status Date / Time ibuprofen [IBUPROFEN] Allergy Intermediate I-ITCHING Verified 06/10/23 11:07 Penicillins Allergy Intermediate FAINTED Verified 06/10/23 11:07 codeine [CODEINE] Allergy Unknown NA-NAUSEA/V Verified 06/10/23 11:07 OMITING pregabalin [From LYRICA] Allergy Unknown BEHAVIORAL Verified 06/10/23 11:07 CHANGES tramadol [TRAMADOL] Allergy Unknown MIGRAINES Verified 06/10/23 11:07 cyclobenzaprine Allergy Verified 06/10/23 11:07 [From Flexeril] furosemide [From Lasix] Allergy Verified 06/10/23 11:07 gabapentin Allergy Verified 06/10/23 11:07 [facility] Disclaimer: The information contained in this section may have been updated after the patient was seen, as this information can be updated by other users. Medical History Asthma Diabetes mellitus, type 2 History of gastroesophageal reflux (GERD) History of transient ischemic attack (TIA) Hyperlipidemia Surgical History History of bilateral carpal tunnel release History of cardiac catheterization History of cholecystectomy History of esophagogastroduodenoscopy (EGD) History of tonsillectomy History of wisdom tooth extraction Family History Other Family history of cancer Family history of myocardial infarction Social History Smoking Status: Current some day smoker tobacco type: cigarettes packs per day: 1 second hand exposure: No alcohol intake: never substance use type: denies use current occupational status: disabled Travel in the last 8 weeks: None household members: family housing: house 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: Yes ROS Obtained: Yes All systems reviewed & no additional complaints except as documented Constitutional Constitutional: Denies chills and Denies fever(s) Eyes Eyes: Denies eye discharge ENT Ears, Nose, Mouth, and Throat: Denies dizziness, Denies otalgia, Denies neck pain and Denies sore throat Cardiovascular Cardiovascular: Denies chest pain Respiratory Respiratory: Denies shortness of breath, Denies chest congestion, Denies cough, Denies stridor and Denies wheezing Gastrointestinal Gastrointestingal: Denies nausea or vomiting Musculoskeletal Musculoskeletal: Reports as per HPI, Denies back pain and Denies neck pain Integumentary/Breasts Skin/Breast: Reports as per HPI, Denies rash and Denies wounds Neurologic Neurologic: Denies dizziness and Denies paresthesias Allergic/Immunologic Allergic/Immunologic: Denies wheezing Physical Exam General General appearance: alert and in no apparent distress Head Head exam: atraumatic, normocephalic and normal inspection Eye Eye exam: Present normal appearance, PERRL and EOMI ENT ENT exam: Present normal exam, normal oropharynx, mucous membranes moist, TM's normal bilaterally and normal external ear exam Neck Neck exam: Present normal inspection, full ROM and trachea midline; Absent meningismus or lymphadenopathy Chest Chest inspection: Present normal inspection and symmetric chest wall rise; Absent tenderness Respiratory Respiratory exam: Present normal lung sounds bilaterally; Absent respiratory distress Cardiovascular Cardiovascular exam: Present regular rate and normal rhythm; Absent JVD Abdominal Exam Abdominal exam: Present soft and normal bowel sounds; Absent distention, tenderness or guarding Extremities Exam Extremities exam: Present normal capillary refill; Absent calf tenderness Expanded Lower Extremity Exam Right: Hip/Pelvis exam: Present normal inspection and full ROM; Absent tenderness Knee exam: Present normal inspection, full ROM and knee extension intact; Absent tenderness, swelling, abrasion, laceration, ecchymosis, deformity, crepitus, dislocation, erythema, effusion, anterior drawer sign, posterior draw sign, pain with valgus, laxity with valgus, pain with varus or laxity with varus Lower leg exam: Present normal inspection, full ROM, tenderness and Achilles tendon intact; Absent swelling, abrasion, laceration, ecchymosis, deformity, crepitus, dislocation, erythema or Homans' sign Ankle exam: Present tenderness and swelling; Absent full ROM, abrasion, laceration, ecchymosis, deformity, crepitus, dislocation, erythema, tenderness over talofibular lig or anterior draw sign Foot/toe exam: Present tenderness, swelling and ecchymosis; Absent full ROM, abrasion, laceration, deformity, crepitus, dislocation, erythema, amputation, puncture wound, foreign body, calcaneal tenderness, tenderness at base of 5th metatarsal, nail avulsion or subungual hematoma Neurovascular/Tendon exam: Present normal capillary refill and normal fine/light touch; Absent pulse deficit, motor deficit, sensory deficit, tendon deficit or extremity cold to touch Gait: observed and limited by pain Back Exam Back exam: Present normal inspection; Absent tenderness Neurological Exam Neurological exam: Present alert and oriented X3 Psychiatric Psychiatric exam: Present normal affect and normal mood Skin Skin exam: Present warm, dry, intact and normal color Lymphatic Lymphatic Findings: no adenopathy Medical Decision Making Medical Records Medical records reviewed: No I reviewed the patient's medical records. [place] Inquiry Pt receiving controlled substance: No Orders (Tests/Meds): ORDERS Category Date Time Status Foot XR right minimum 3 views [XR foot RT min 3V] Stat Exams 07/21/23 17:26 Completed XR ankle RT min 3V Stat Exams 07/21/23 17:26 Completed Radiology Data #1: Image(s): Ankle Image Reviewed: Yes I reviewed the patient's radiology image and Yes I have reviewed radiologist's interpretation Preliminary Findings: Normal/NAD and No Fracture Seen PROCEDURE INFORMATION: Exam: XR Right Ankle Exam date and time: 07/21/2023 5:29 PM Age: 52 years old Clinical indication: Pain; Ankle and foot; Right TECHNIQUE: Imaging protocol: Radiologic exam of the right ankle. Views: 3 or more views. COMPARISON: CR Foot R 07/21/2023 5:28 PM FINDINGS: Bones/joints: Osseous alignment is normal. No acute fracture or significant arthritic change. Moderate plantar calcaneal spurring noted. Soft tissues: Normal. IMPRESSION: No acute abnormality #2: Image(s): Foot/Toes Image Reviewed: Yes I reviewed the patient's radiology image and Yes I have reviewed radiologist's interpretation Preliminary Findings: Normal/NAD and No Fracture Seen PROCEDURE INFORMATION: Exam: XR Right Foot Exam date and time: 07/21/2023 5:28 PM Age: 52 years old Clinical indication: Pain; Ankle and foot; Right TECHNIQUE: Imaging protocol: Radiologic exam of the right foot. Views: 3 or more views. COMPARISON: MR KNEE RT WO CON 02/24/2022 12:11 PM FINDINGS: Bones/joints: Osseous alignment is normal. No acute fracture or significant arthritic change. Moderate plantar calcaneal spurring noted. Soft tissues: Normal. IMPRESSION: No acute abnormality Procedures Risk/Benefits of Procedure(s) Were Explained: Yes Orthopedic Splinting/Casting Injury #1: Side: right Lower Extremity Injury Location: ankle and foot Lower Extremity Immobilizer: boot orthosis and applied by nurse/dr narayan Post Cast/Splinting Neuro Status: intact and no change Post Cast/Splinting Vasc Status: intact and no change
[2023-07-21 19:00] VITALS: BP 158/70; PULSE 91; RESP 18; TEMP 36.8; O2SAT 94
== END 2023-07-21 19:00 | disposition home or self-care (01) ==
PROVIDERS: Emergency Provider Nurse Practitioner Family; PCP Nurse Practitioner
DX: S93.601A Unspecified sprain of right foot, initial encounter (principal); W01.0XXA Fall on same level from slipping, tripping and stumbling without subsequent striking against object, initial encounter; J45.909 Unspecified asthma, uncomplicated; E11.9 Type 2 diabetes mellitus without complications; E78.5 Hyperlipidemia, unspecified; Z86.73 Personal history of transient ischemic attack (TIA), and cerebral infarction without residual deficits; F17.210 Nicotine dependence, cigarettes, uncomplicated
CPT/HCPCS: 73610; 73630; 99212; 99213; G0463

== ENCOUNTER 2023-08-04 11:46 | Day surgery (SDC) | payer BC, SELFPAY ==
[2023-08-04 12:19] VITALS: BP 132/76; PULSE 73; RESP 18; TEMP 36.2; O2SAT 97; BMI 42.3
[2023-08-04] MEDS: LACTATED RINGERS 1000ML 1,000 ML 25 ML IV (12:23)
[2023-08-04 12:25] LABS: POC Glucose,Bedside 120 (70-110)
--- NOTE | 2023-08-04 13:19 | EXP.ANES.CKL ---
[facility] Disclaimer: The information contained in this section may have been updated after the patient was seen, as this information can be updated by other users. Medical History Asthma Diabetes mellitus, type 2 History of gastroesophageal reflux (GERD) History of transient ischemic attack (TIA) Hyperlipidemia Surgical History History of bilateral carpal tunnel release History of cardiac catheterization History of cholecystectomy History of esophagogastroduodenoscopy (EGD) History of tonsillectomy History of wisdom tooth extraction Family History Other Family history of cancer Family history of myocardial infarction Social History Smoking Status: Current some day smoker tobacco type: cigarettes packs per day: 1 second hand exposure: No alcohol intake: never substance use type: denies use current occupational status: disabled Travel in the last 8 weeks: None household members: family housing: house 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: Yes [facility] Anesthesia Checklist Patient Identification Patient Identification: Arm Band and Verbal (Name & ) Structural Data Admitted From: Home Planned Operative Procedure/s: Colonoscopy Consent for Planned Operative Procedure(s) Verified: Yes Verified Documents: Surgical Consent and History and Physical NPO Status Verified Time NPO: 06:45 Chart Verification Results Verified: CBC, BMP, ECG and Chest Xray Additional verifications Fingerstick Blood Glucose: 120 Patient : No Anesthesia Reactions: No Cardiovascular Assessment Heart Sounds: S1 & S2 Pulse Rhythm: Irregular Peripheral Edema: No Airway Assessment Mallampati Score:: Class III C-Spine Mobility Assessed: Yes (FROM) TMJ Mobility Assessed: Yes Dentition: Poor Dentition (+ missing teeth, cracked filling; Nothing loose per pt.) Neurological Assessment Level of Consciousness: Awake, Alert, Appropriate and Follows Commands Hx Seizures: No Numbness or tingling in extremities: No Anesthesia Plan Anesthesia Risk discussed: Yes Anesthesia Plan: Verified ASA Class: III Anesthesia Type: MAC
[2023-08-04 13:22] VITALS: O2SAT 97
--- NOTE | 2023-08-04 13:57 | HMH.SCOPE ---
Procedure: Date: 08/04/23 Patient Date of :: 1970 Procedure Performed:: Colonoscopy Indications:: The patient is a 53-year-old who presents for screening colonoscopy. Performing Provider:: Kareem Suero MD Referring Provider:: Christie Lord APRN Sedation:: See RN records Procedure:: After placing the patient in the left lateral decubitus position, the colonoscopy was gently inserted into the rectum and under direct visualization advanced to the cecum which was identified by transillumination in the right lower quadrant, identification of the ileocecal valve, appendiceal orifice, and cecal strap. Color, texture, mucosa, and anatomy of the colon were carefully examined with the scope. Findings:: A small sized sessile polyp (4 to 6 mm) was found in the cecum. The polyp was removed by cold snare polypectomy. The polyp was not retrieved. A medium sized sessile polyp (7 to 9 mm) was found in the transverse colon. The polyp was pedunculated. The polyp was removed by hot snare polypectomy. Polyp was retrieved A small sized sessile polyp (4 to 6 mm) was found at 20 cm. The polyp was removed by hot snare polypectomy. The polyp was retrieved There was irregular appearing mucosa adjacent to the polyp at 20 cm. The mucosa was diffusely spread in this area. Biopsies were obtained for histology. The quality of the bowel preparation was fair to poor in the sigmoid and rectum. Quality of the bowel preparation in the descending colon and splenic flexure was fair. Remaining colon was a good preparation Internal hemorrhoids were seen on retroflexion view of the rectum Impression: Polyp of the cecum. Not retrieved Polyp of the transverse colon. Polyp at 20 cm Irregular appearing mucosa at 20 cm Recommendations:: Await pathology result Repeat colonoscopy in 1 year with 2 days liquid diet and extended bowel preparation. Will repeat colonoscopy sooner if clinically indicated based on pathology results. Follow-up referring provider Complications:: None Estimated blood obtained (mL): 0 Colonoscopy Component Colonoscopy Component Was a colonoscopy performed during today's procedure?: Yes Recommended follow up colonoscopy of at least 10 years?: Yes
[2023-08-04 13:59] VITALS: BP 106/55; PULSE 78; RESP 16; TEMP 36.6; O2SAT 93
[2023-08-04 14:09] VITALS: BP 103/57; PULSE 76; RESP 16; O2SAT 94
[2023-08-04 14:19] VITALS: BP 106/64; PULSE 78; RESP 16; O2SAT 95
[2023-08-04 14:29] VITALS: BP 108/74; PULSE 78; RESP 16; TEMP 36.6; O2SAT 96
== END 2023-08-04 14:38 | disposition home or self-care (01) ==
PROVIDERS: PCP Nurse Practitioner; Visit Provider Internal Medicine
PROC: 0DJD8ZZ Inspection of Lower Intestinal Tract, Via Natural or Artificial Opening Endoscopic (ICD-10-PCS; CPT 45378; principal; 2023-08-04 13:00)
DX: Z12.11 Encounter for screening for malignant neoplasm of colon (principal); K64.8 Other hemorrhoids; D12.3 Benign neoplasm of transverse colon; K51.40 Inflammatory polyps of colon without complications; E11.9 Type 2 diabetes mellitus without complications
CPT/HCPCS: 45385; 82962; J2704

== ENCOUNTER 2023-09-18 05:40 | Emergency (ER) | payer BC, SELFPAY ==
[2023-09-18] VITALS (9 sets, daily range): BP systolic 109–176; BP diastolic 67–103; PULSE 75–99; RESP 16–20; TEMP 36.7–36.8; O2SAT 94–96; BMI 43.5
--- NOTE | 2023-09-18 06:08 | XR_ITS ---
PROCEDURE INFORMATION: Exam: XR Chest Exam date and time: 09/18/2023 6:13 AM Age: 53 years old Clinical indication: Other: Dka; Additional info: Dka. Smoker TECHNIQUE: Imaging protocol: Radiologic exam of the chest. Views: 2 views. COMPARISON: CR XR CHEST PORTABLE 03/13/2023 9:08 AM FINDINGS: Lungs: Unremarkable. No consolidation. Pleural spaces: Unremarkable. No pleural effusion. No pneumothorax. Heart/Mediastinum: Unremarkable. No cardiomegaly. Bones/joints: Unremarkable. IMPRESSION: No acute findings.
--- NOTE | 2023-09-18 06:08 | HMH.EDGENADL ---
Discharge Plan Disposition Patient Disposition: Still a Patient Prescriptions Prescriptions: No Action metformin 1,000 mg tablet 1,000 mg PO BID acetaminophen 500 mg tablet 500 mg PO Q6H PRN (Reason: Pain) famotidine [Pepcid] 20 mg tablet 20 mg PO BID albuterol sulfate 90 mcg/actuation HFA aerosol inhaler 1 inh inhalation DAILY (DME) cane Device See Rx Instructions .Route Qty: 1 0RF Rx Instructions: As directed metformin 1,000 mg Tablet 1,000 mg PO BID diphenhydramine HCl [Benadryl Allergy] 25 mg Tablet 25 mg PO HS PRN (Reason: Allergy Symptoms) glimepiride 4 mg Tablet 4 mg PO DAILY Referrals Follow up/Referrals: Christie Lord APRN [Primary Care Provider] - See instructions Activity Restrictions/Add. Instructions Additional Instructions/Restrictions: No emergent medical condition identified today please follow-up with your primary care doctor regarding ongoing management of your diabetes. Clinical Impressions Clinical Impression: Generalized weakness, Nausea Discharge ED Provider: Mae Loza General Adult HPI <Mae Loza MD - Last Filed: 09/18/23 07:05> General Chief complaint: Recheck/Abnormal Lab/Rx Stated complaint: guardado,nausea,high blood sugar,frequent urination Time Seen by Provider: 09/18/23 05:57 History of Present Illness HPI narrative: 53-year-old female with history of type 2 diabetes currently only controlled with metformin and Amaryl. Patient states 2 days ago she started feeling slightly lightheaded. She skipped work because of the dizziness while driving. She felt like she was going to pass out. She states she has had increased thirst and urination as well. She has had nausea but no vomiting. Patient states her urine has smelled sweet and she is concerned that she may have DKA. Strong family history for acute cardiac events as well. Related Data Home Medications Medication Instructions Recorded Confirmed acetaminophen 500 mg tablet 500 mg PO Q6H PRN Pain 06/10/23 08/04/23 albuterol sulfate 90 mcg/actuation 1 inh inhalation DAILY Asthma 06/10/23 08/04/23 aerosol inhaler famotidine 20 mg tablet (Pepcid) 20 mg PO BID 06/10/23 08/04/23 metformin 1,000 mg tablet 1,000 mg PO BID 06/10/23 08/04/23 diphenhydramine HCl 25 mg tablet 25 mg PO HS PRN Allergy Symptoms 08/04/23 08/04/23 (Benadryl Allergy) glimepiride 4 mg tablet 4 mg PO DAILY 08/04/23 08/04/23 metformin 1,000 mg tablet 1,000 mg PO BID 08/04/23 08/04/23 Previous Rx's Medication Instructions Recorded cane #1 ea 02/21/22 Allergies Allergy/AdvReac Type Severity Reaction Status Date / Time ibuprofen [IBUPROFEN] Allergy Intermediate I-ITCHING Verified 08/04/23 12:08 Penicillins Allergy Intermediate FAINTED Verified 08/04/23 12:08 codeine [CODEINE] Allergy Unknown NA-NAUSEA/V Verified 08/04/23 12:08 OMITING pregabalin [From LYRICA] Allergy Unknown BEHAVIORAL Verified 08/04/23 12:08 CHANGES tramadol [TRAMADOL] Allergy Unknown MIGRAINES Verified 08/04/23 12:08 cyclobenzaprine Allergy Verified 08/04/23 12:08 [From Flexeril] furosemide [From Lasix] Allergy Verified 08/04/23 12:08 gabapentin Allergy Verified 08/04/23 12:08 PFS <Mae Loza MD - Last Filed: 09/18/23 07:05> [facility] Disclaimer: The information contained in this section may have been updated after the patient was seen, as this information can be updated by other users. Medical History Asthma Diabetes mellitus, type 2 History of gastroesophageal reflux (GERD) History of transient ischemic attack (TIA) Hyperlipidemia Surgical History History of bilateral carpal tunnel release History of cardiac catheterization History of cholecystectomy History of esophagogastroduodenoscopy (EGD) History of tonsillectomy History of wisdom tooth extraction Family History Other Family history of cancer Family history of myocardial infarction Social History Smoking Status: Current some day smoker tobacco type: cigarettes packs per day: 1 second hand exposure: No alcohol intake: never substance use type: denies use current occupational status: disabled Travel in the last 8 weeks: None household members: family housing: house 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: Yes <Mae Loza MD - Last Filed: 09/18/23 07:05> ROS Obtained: Yes All systems reviewed & no additional complaints except as documented Constitutional Constitutional: Denies chills, Denies fever(s), Denies headache(s), Reports malaise and Denies weakness Eyes Eyes: Denies change in vision ENT Ears, Nose, Mouth, and Throat: Denies dizziness, Denies headache(s), Denies nasal congestion and Denies sore throat Cardiovascular Cardiovascular: Denies chest pain, Denies dyspnea and Denies leg edema Respiratory Respiratory: Denies cough and Denies dyspnea Gastrointestinal Gastrointestingal: Reports nausea; Denies constipation, diarrhea or vomiting Genitourinary Female Genitourinary: Denies dysuria Musculoskeletal Musculoskeletal: Denies arthralgias, Denies myalgias, Denies numbness and Denies tingling Integumentary/Breasts Skin/Breast: Denies change in pigmentation Neurologic Neurologic: Denies dizziness, Denies headache(s), Denies numbness, Denies tingling and Denies weakness Physical Exam <Mae Loza MD - Last Filed: 09/18/23 07:05> General General appearance: alert and in no apparent distress Comment: mildly chronically ill appearing Head Head exam: atraumatic and normocephalic Eye Eye exam: Present PERRL and EOMI ENT ENT exam: Present mucous membranes moist Neck Neck exam: Present normal inspection and full ROM Chest Chest inspection: Present symmetric chest wall rise Respiratory Respiratory exam: Present normal lung sounds bilaterally; Absent respiratory distress, wheezes or stridor Cardiovascular Cardiovascular exam: Present regular rate and normal rhythm Abdominal Exam Abdominal exam: Present soft; Absent distention, tenderness, guarding or rebound Extremities Exam Extremities exam: Present full ROM Neurological Exam Neurological exam: Present alert and oriented X3; Absent motor sensory deficit Psychiatric Psychiatric exam: Present normal affect and normal mood Skin Skin exam: Present warm and dry Medical Decision Making <Mae Loza MD - Last Filed: 09/18/23 07:05> [facility] Inquiry Pt receiving controlled substance: No Vital Signs: 09/18/23 05:42 09/18/23 05:50 09/18/23 05:56 Temperature 98.2 F Temperature Source Oral Pulse Rate 99 H 89 Pulse Rate [Left] 86 Respiratory Rate 18 20 18 Blood Pressure 163/103 H 175/94 H Blood Pressure [Right Arm] 175/94 H Blood Pressure Mean [Right Arm] 121 02 Sat by Pulse Oximetry 96 96 96 Oxygen Delivery Method Room Air Room Air Room Air 09/18/23 06:01 09/18/23 07:00 Temperature Temperature Source Pulse Rate 91 H 78 Pulse Rate [Left] Respiratory Rate 18 18 Blood Pressure 176/86 H 132/67 Blood Pressure [Right Arm] Blood Pressure Mean [Right Arm] 02 Sat by Pulse Oximetry 95 94 L Oxygen Delivery Method Room Air Room Air Lab Data Lab Results 09/18/23 05:48: Urine Color Yellow, Urine Appearance Clear, Urine pH 5.5, Ur Specific [place] >= 1.030, Urine Protein Negative, Urine Glucose (UA) 2+, Urine Ketones Trace, Urine Blood Trace-i, Urine Nitrate Negative, Urine Bilirubin Negative, Urine Urobilinogen 0.2, Ur Leukocyte Esterase Trace, Urine RBC 3-5, Urine WBC 10-20, Ur Squamous Epith Cells 10-20, Urine Bacteria 2+ 09/18/23 05:55: WBC 8.7, RBC 5.14, Hgb 14.8, Hct 46.4, MCV 90.3, MCH 28.7, MCHC 31.8, RDW 14.2, Plt Count 287, MPV 7.5, Neut % (Auto) 47.9, Lymph % (Auto) 43.8, [place] % (Auto) 4.5, Eos % (Auto) 2.6, Baso % (Auto) 1.2, Neut # (Auto) 4.2, Lymph # (Auto) 3.8, [place] # (Auto) 0.4, Eos # (Auto) 0.2, Baso # (Auto) 0.1, PT 10.3, INR 0.95, Sodium 136, Potassium 4.1, Chloride 99, Carbon Dioxide 26, Anion Gap 15.1 H, BUN 15, Creatinine 0.70, Estimated Creat Clear 86, Estimated GFR 87, Est GFR ( Amer) 106, Glucose 266 H, Calcium 10.2, Total Bilirubin 0.4, AST 42 H, ALT 38, Alkaline Phosphatase 78, Troponin I < 0.01, Total Protein 7.4, Albumin 4.5, Globulin 2.9, Albumin/Globulin Ratio 1.6, Acetone Level None detected 09/18/23 06:10: VBG pH 7.35, VBG pCO2 41.2, VBG pO2 45.9 H, VBG HCO3 22.3 L, VBG Total CO2 23.6, VBG O2 Saturation 81.2 H, VBG Base Excess -3.3 L, VBG Lactic Acid 2.1 H 09/18/23 06:33: SARS-CoV-2 (PCR) Not detected, Influenza A Untype (PCR) Not detected, Influenza Type B (PCR) Not detected 09/18/23 05:55 09/18/23 05:55 Orders (Tests/Meds): ED MEDICATIONS Discontinued Medications Generic Name Dose Route Start Last Admin Trade Name Freq PRN Reason Stop Dose Admin Acetaminophen 1,000 mg 09/18/23 06:10 09/18/23 06:19 Acetaminophen 1,000mg/100ml Vial IV 09/18/23 06:11 1,000 mg ONCE ONE Administration Lactated Ringer's 1,000 mls @ 999 mls/hr 09/18/23 06:10 09/18/23 06:19 Lactated Ringer's 1000 Ml Bag IV 09/18/23 07:10 999 mls/hr .Q1H1M ONE Administration Ondansetron HCl 4 mg 09/18/23 06:10 09/18/23 06:20 Ondansetron 4mg/2ml Vial IV 09/18/23 06:11 Not Given ONCE ONE ORDERS Category Date Time Status Chest XR 2 view (NOT portable) [XR chest 2V] Stat Exams 09/18/23 06:08 Taken Acetone, Serum (Rapid) Stat Lab 09/18/23 05:55 Completed Complete Blood Count Auto Diff Stat Lab 09/18/23 05:55 Completed Comprehensive Metabolic Panel Stat Lab 09/18/23 05:55 Completed Hemoglobin A1C Stat Lab 09/18/23 05:55 Received Prothrombin Time INR Stat Lab 09/18/23 05:55 Completed Rapid PCR Covid and Flu A/B Stat Lab 09/18/23 06:33 Completed Troponin I Q3H Lab 09/18/23 09:15 Ordered Troponin I Q3H Lab 09/18/23 12:15 Ordered Troponin I Stat Lab 09/18/23 05:55 Completed Urinalysis and Microscopic Stat Lab 09/18/23 05:48 Completed Urine Culture Stat Micro 09/18/23 05:48 Received VBG [Venous Blood Gas] Stat RT 09/18/23 06:10 Completed Medical Decision Narrative: In summary, this 53year old female with a history of diabetes which is a comorbidity of current condition and increases her overall morbidity presents to the emergency department today with concerns of dizziness, increased thirst, increased urination. On initial evaluation patient is hemodynamically stable, afebrile, chronically ill-appearing, abdomen soft, nontender, nondistended. Differential diagnosis includes but is not limited to viral syndrome, hyperglycemia, I considered DKA, HHS, electrolyte abnormality, dehydration, arrhythmia, ACS. Based on these concerns, I ordered cardiac workup, basic labs, A1c, VBG. ECG personally interpreted demonstrates normal sinus rhythm, rate 87, right bundle branch block, normal NE and QTc, no STEMI, ECG today similar to 03/13/2023 on my review of prior records. Patient received IV fluids, Zofran for treatment. Labs personally reviewed demonstrate no leukocytosis or anemia, PT/INR normal, VBG with pH 7.35, lactic on VBG was slightly elevated at 2.1, patient is receiving IV fluids. No findings of kidney dysfunction, no actionable electrolyte abnormalities, patient does have hyperglycemia with glucose 266. Initial troponin undetectable at less than 0.01, acetone negative, UA negative for findings of infection. XR personally interpreted demonstrates no acute thoracic abnormality, see radiology read for final interpretation. On reassessment patient continues to be stable. Viral swab pending. Patient handed off to Dr. Ferrari at physician shift change for further management and disposition pending viral swab. <Arnav Ferrari MD - Last Filed: 09/18/23 07:37> Vital Signs: 09/18/23 05:42 09/18/23 05:50 09/18/23 05:56 Temperature 98.2 F Temperature Source Oral Pulse Rate 99 H 89 Pulse Rate [Left] 86 Respiratory Rate 18 20 18 Blood Pressure 163/103 H 175/94 H Blood Pressure [Right Arm] 175/94 H Blood Pressure Mean [Right Arm] 121 02 Sat by Pulse Oximetry 96 96 96 Oxygen Delivery Method Room Air Room Air Room Air 09/18/23 06:01 09/18/23 07:00 Temperature Temperature Source Pulse Rate 91 H 78 Pulse Rate [Left] Respiratory Rate 18 18 Blood Pressure 176/86 H 132/67 Blood Pressure [Right Arm] Blood Pressure Mean [Right Arm] 02 Sat by Pulse Oximetry 95 94 L Oxygen Delivery Method Room Air Room Air Lab Data Lab results reviewed: Yes I reviewed the patient's lab results. Lab Results 09/18/23 05:48: Urine Color Yellow, Urine Appearance Clear, Urine pH 5.5, Ur Specific [place] >= 1.030, Urine Protein Negative, Urine Glucose (UA) 2+, Urine Ketones Trace, Urine Blood Trace-i, Urine Nitrate Negative, Urine Bilirubin Negative, Urine Urobilinogen 0.2, Ur Leukocyte Esterase Trace, Urine RBC 3-5, Urine WBC 10-20, Ur Squamous Epith Cells 10-20, Urine Bacteria 2+ 09/18/23 05:55: WBC 8.7, RBC 5.14, Hgb 14.8, Hct 46.4, MCV 90.3, MCH 28.7, MCHC 31.8, RDW 14.2, Plt Count 287, MPV 7.5, Neut % (Auto) 47.9, Lymph % (Auto) 43.8, [place] % (Auto) 4.5, Eos % (Auto) 2.6, Baso % (Auto) 1.2, Neut # (Auto) 4.2, Lymph # (Auto) 3.8, [place] # (Auto) 0.4, Eos # (Auto) 0.2, Baso # (Auto) 0.1, PT 10.3, INR 0.95, Sodium 136, Potassium 4.1, Chloride 99, Carbon Dioxide 26, Anion Gap 15.1 H, BUN 15, Creatinine 0.70, Estimated Creat Clear 86, Estimated GFR 87, Est GFR ( Amer) 106, Glucose 266 H, Calcium 10.2, Total Bilirubin 0.4, AST 42 H, ALT 38, Alkaline Phosphatase 78, Troponin I < 0.01, Total Protein 7.4, Albumin 4.5, Globulin 2.9, Albumin/Globulin Ratio 1.6, Acetone Level None detected 09/18/23 06:10: VBG pH 7.35, VBG pCO2 41.2, VBG pO2 45.9 H, VBG HCO3 22.3 L, VBG Total CO2 23.6, VBG O2 Saturation 81.2 H, VBG Base Excess -3.3 L, VBG Lactic Acid 2.1 H 09/18/23 06:33: SARS-CoV-2 (PCR) Not detected, Influenza A Untype (PCR) Not detected, Influenza Type B (PCR) Not detected Orders (Tests/Meds): ED MEDICATIONS Discontinued Medications Generic Name Dose Route Start Last Admin Trade Name Rodolfoq PRN Reason Stop Dose Admin Acetaminophen 1,000 mg 09/18/23 06:10 09/18/23 06:19 Acetaminophen 1,000mg/100ml Vial IV 09/18/23 06:11 1,000 mg ONCE ONE Administration Lactated Ringer's 1,000 mls @ 999 mls/hr 09/18/23 06:10 09/18/23 06:19 Lactated Ringer's 1000 Ml Bag IV 09/18/23 07:10 999 mls/hr .Q1H1M ONE Administration Ondansetron HCl 4 mg 09/18/23 06:10 09/18/23 06:20 Ondansetron 4mg/2ml Vial IV 09/18/23 06:11 Not Given ONCE ONE ORDERS Category Date Time Status Chest XR 2 view (NOT portable) [XR chest 2V] Stat Exams 09/18/23 06:08 Taken Acetone, Serum (Rapid) Stat Lab 09/18/23 05:55 Completed Complete Blood Count Auto Diff Stat Lab 09/18/23 05:55 Completed Comprehensive Metabolic Panel Stat Lab 09/18/23 05:55 Completed Hemoglobin A1C Stat Lab 09/18/23 05:55 Received Prothrombin Time INR Stat Lab 09/18/23 05:55 Completed Rapid PCR Covid and Flu A/B Stat Lab 09/18/23 06:33 Completed Troponin I Q3H Lab 09/18/23 09:15 Ordered Troponin I Q3H Lab 09/18/23 12:15 Ordered Troponin I Stat Lab 09/18/23 05:55 Completed Urinalysis and Microscopic Stat Lab 09/18/23 05:48 Completed Urine Culture Stat Micro 09/18/23 05:48 Received VBG [Venous Blood Gas] Stat RT 09/18/23 06:10 Completed Medical Decision Narrative: In summary, this 53year old female with a history of diabetes which is a comorbidity of current condition and increases her overall morbidity presents to the emergency department today with concerns of dizziness, increased thirst, increased urination. On initial evaluation patient is hemodynamically stable, afebrile, chronically ill-appearing, abdomen soft, nontender, nondistended. Differential diagnosis includes but is not limited to viral syndrome, hyperglycemia, I considered DKA, HHS, electrolyte abnormality, dehydration, arrhythmia, ACS. Based on these concerns, I ordered cardiac workup, basic labs, A1c, VBG. ECG personally interpreted demonstrates normal sinus rhythm, rate 87, right bundle branch block, normal NE and QTc, no STEMI, ECG today similar to 03/13/2023 on my review of prior records. Patient received IV fluids, Zofran for treatment. Labs personally reviewed demonstrate no leukocytosis or anemia, PT/INR normal, VBG with pH 7.35, lactic on VBG was slightly elevated at 2.1, patient is receiving IV fluids. No findings of kidney dysfunction, no actionable electrolyte abnormalities, patient does have hyperglycemia with glucose 266. Initial troponin undetectable at less than 0.01, acetone negative, UA negative for findings of infection. XR personally interpreted demonstrates no acute thoracic abnormality, see radiology read for final interpretation. On reassessment patient continues to be stable. Viral swab pending. Patient handed off to Dr. Ferrari at physician shift change for further management and disposition pending viral swab. \Reassessment 7:[address] Ferrari took over from Dr. Loza. Patient feeling better I personally interpreted and reviewed patient's workup. No evidence of DKA significant electrolyte abnormalities organ dysfunction etc. She does have hyperglycemia which she is aware of. She will follow-up with her primary care doctor regarding this. IV fluids administered. No evidence of COVID or flu on viral testing. Supportive care discussed return precautions emphasized patient discharged in stable condition. Critical Care <Mae Loza MD - Last Filed: 09/18/23 07:05> Critical Care Time Critical Care Time: No
--- NOTE | 2023-09-18 06:14 | ECG_ITS ---
APPROVED REPORT Exam: Resting ECG HR:87 bpm ECG Measurements Heart Rate 87 AXES NE 159 P 64 QRSd 154 QRS -1 QT 384 T 25 QTc 428 Conclusion SINUS RHYTHM RIGHT BUNDLE BRANCH BLOCK [120+ ms QRS DURATION, UPRIGHT V1, 40+ ms S IN I/aVL/V4/V5/V6] POSSIBLE ANTERIOR MYOCARDIAL INFARCTION , OF INDETERMINATE AGE [30 ms Q WAVE IN V3/V4, OR R < 0.2 mV IN V4] ABNORMAL ECG Electronically signed by : JUAN JOHN, 09/18/2023 15:29:54
[2023-09-18 06:16] LABS: Lactate Venous 2.1 mmol/L (0.4-2.0); VBG Base Excess -3.3 mmol/L (-2.4-2.3); VBG HCO3 22.3 mmol/L (23-30); VBG Oxygen Saturation 81.2 % (50-70); VBG PCO2 41.2 mmol/L (35-51); VBG PH 7.35 mmol/L (7.31-7.41); VBG PO2 45.9 mmol/L (28-40); VBG Total CO2 23.6 mmol/L (23-27)
[2023-09-18 06:16] LABS: Microscopic, Urine URINE MICROSCOPIC (MICROSCOPIC)
[2023-09-18 06:17] LABS: Basophils # 0.1 K/mm3 (0-0.2); Basophils % 1.2 % (0.1-2.0); Eosinophils # 0.2 K/mm3 (0.0-0.4); Eosinophils % 2.6 % (0.1-12.0); Hematocrit 46.4 % (37.0-47.0); Hemoglobin 14.8 g/dL (12.2-16.2); Lymphocytes # 3.8 K/mm3 (0.7-4.5); Lymphocytes % 43.8 % (10-50); Mean Corpuscular HGB Conc 31.8 g/dL (31.8-35.4); Mean Corpuscular Hemoglobin 28.7 pg (27.0-31.2); Mean Corpuscular Volume 90.3 fl (81-99); Mean Platelet Volume 7.5 fl (7.4-10.4); Monocytes # 0.4 K/mm3 (0.1-1.0); Monocytes % 4.5 % (1.7-9.3); Neutrophils # 4.2 K/mm3 (1.8-7.8); Neutrophils % 47.9 % (37.0-80.0); Platelet Count 287 K/mm3 (142-424); Red Blood Count 5.14 M/mm3 (4.20-5.40); Red Cell Distribution Width 14.2 % (11.5-17.5); White Blood Count 8.7 K/mm3 (4.8-10.8)
[2023-09-18] MEDS: LACTATED RINGERS 1000ML 1,000 ML 999 ML IV (06:19)
[2023-09-18] MEDS: ACETAMINOPHEN 1,000MG/100ML VIAL 1000 MG IV (06:19)
[2023-09-18 06:21] LABS: Appearance,Urine CLEAR (Clear); Bilirubin,Urine Negative (Negative); Blood, Urine TRACE-I (Negative); Color,Urine YELLOW (Yellow); Glucose,Urine (UA) 2+ (Negative); Ketones,Urine TRACE (Negative); Leukocyte Esterase,Urine TRACE (Negative); Nitrate,Urine Negative (Negative); PH,Urine 5.5 (5.0-8.5); Protein,Urine Negative (Negative); Specific Gravity, Urine >= 1.030 (1.005-1.030); Urobilinogen,Urine 0.2 EU/dl (0.2)
[2023-09-18 06:24] LABS: Alanine Aminotransferase 38 U/L (12-78); Albumin Level 4.5 g/dl (3.5-5.0); Albumin/Globulin Ratio 1.6 (1.1-1.8); Alkaline Phosphatase 78 U/L (38-126); Anion Gap 15.1 mEq/L (5-15); Aspartate Amino Transferase 42 U/L (14-36); Bilirubin,Total 0.4 mg/dl (0.2-1.3); Blood Urea Nitrogen 15 mg/dl (7-17); Calcium 10.2 mg/dl (8.4-10.2); Carbon Dioxide 26 mmol/L (22.0-30.0); Chloride 99 mmol/L (98-107); Creatinine Clearance Estimated 86 mL/min (50-200); Estimated Glomerular Filt Rate 87 ml/min (>60); GFR (African American) 106 ML/MIN (>60); Globulin 2.9 g/dL (1.3-3.2); Glucose 266 mg/dl (74-100); Potassium 4.1 mmoL/L (3.5-5.1); Sodium 136 mmol/L (136-145); Total Protein,Serum 7.4 g/dl (6.3-8.2)
[2023-09-18 06:25] LABS: Acetone, Serum (Rapid) None Detected (None Detect); INR 0.95 (0.9-1.1); Prothrombin Time 10.3 seconds (10.1-12.5)
[2023-09-18 06:42] LABS: Coronavirus 19, PCR Not Detected (NotDetected); Influenza A, PCR Not Detected (NotDetected); Influenza B, PCR Not Detected (NotDetected)
[2023-09-18 06:49] LABS: Troponin I < 0.01 ng/ml (0.00-0.034)
[2023-09-18 07:10] LABS: Bacteria,Urine 2+ /lpf
[2023-09-18 07:42] LABS: Hemoglobin A1C 9.1 % (4.0-6.0)
[2023-09-18 10:16] LABS: Reflex Lactic Add Lactic Reflex
== END 2023-09-18 07:52 | disposition still patient (30) ==
PROVIDERS: Emergency Provider Emergency Medicine; PCP Nurse Practitioner
DX: E11.65 Type 2 diabetes mellitus with hyperglycemia (principal); R11.0 Nausea; B96.89 Other specified bacterial agents as the cause of diseases classified elsewhere; I45.19 Other right bundle-branch block; R42 Dizziness and giddiness; R53.1 Weakness; F17.210 Nicotine dependence, cigarettes, uncomplicated; K21.9 Gastro-esophageal reflux disease without esophagitis; E78.5 Hyperlipidemia, unspecified; Z79.84 Long term (current) use of oral hypoglycemic drugs
CPT/HCPCS: 71046; 80053; 81001; 82009; 82803; 83036; 84484; 85025; 85610; 87086; 87636; 93005; 96361; 96374; 96375; 99285; J0131

== ENCOUNTER 2023-11-14 07:42 | Emergency (ER) | payer OTHER, SELFPAY ==
[2023-11-14 07:44] VITALS: BP 135/80; PULSE 82; RESP 18; TEMP 36.6; O2SAT 96; BMI 44.0
--- NOTE | 2023-11-14 07:46 | HMH.EDGENADL ---
Discharge Plan Disposition Patient Disposition: Home, Self-Care Condition: Good Prescriptions Prescriptions: No Action metformin 1,000 mg tablet 1,000 mg PO BID acetaminophen 500 mg tablet 500 mg PO Q6H PRN (Reason: Pain) famotidine [Pepcid] 20 mg tablet 20 mg PO BID albuterol sulfate 90 mcg/actuation HFA aerosol inhaler 1 inh inhalation DAILY (DME) cane Device See Rx Instructions .Route Qty: 1 0RF Rx Instructions: As directed metformin 1,000 mg Tablet 1,000 mg PO BID diphenhydramine HCl [Benadryl Allergy] 25 mg Tablet 25 mg PO HS PRN (Reason: Allergy Symptoms) glimepiride 4 mg Tablet 4 mg PO DAILY Referrals Follow up/Referrals: Christie Lord APRN [Primary Care Provider] - See instructions Activity Restrictions/Add. Instructions Additional Instructions/Restrictions: Please follow-up with your spinal specialist and adhere to any ongoing recommendations regarding work restrictions or movement, lifting restrictions, etc. please return with any new or worsening symptoms. 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 She reports that the pain was initially a 6 out of 10 in intensity and has since worsened. She also reports experiencing numbness down the right thigh and weakness in the right leg, which has slightly improved since last night. Raising the arms also causes pain in the lower back. The patient has a history of fibromyalgia and prefers to manage pain with ice and Tylenol. The patient has a history of a broken L5 vertebra and a 32% retrolisthesis, which was surgically corrected in 2019. Since the surgery, she has experienced improvement in her condition. She has previously received SI joint injections and has a history of compression fracture type of injury. She denies any history of cancer but reports having abnormal polyps on the colon. The patient is not on blood thinners. Please note that above description of symptoms, in this electronic medical record under categorization of recalled from ER triage doctor by RN are reflective of an initial nursing assessment, however, is not reflective of my full history and physical exam that was personally taken and clarified. Consequentially, this preceding description of symptoms, which may include the patient's categorized chief complaint in the EMR, do not reflect my personal clinical impression, and the ultimate description of history of present illness and patient stated complaints should be deferred to this section of the note. Unless stated otherwise or congruent with this section of the note, additional signs, symptoms, or incongruence should be interpreted as inaccurate with my clinical impression. Related Data Home Medications Medication Instructions Recorded Confirmed acetaminophen 500 mg tablet 500 mg PO Q6H PRN Pain 06/10/23 08/04/23 albuterol sulfate 90 mcg/actuation 1 inh inhalation DAILY Asthma 06/10/23 08/04/23 aerosol inhaler famotidine 20 mg tablet (Pepcid) 20 mg PO BID 06/10/23 08/04/23 metformin 1,000 mg tablet 1,000 mg PO BID 06/10/23 08/04/23 diphenhydramine HCl 25 mg tablet 25 mg PO HS PRN Allergy Symptoms 08/04/23 08/04/23 (Benadryl Allergy) glimepiride 4 mg tablet 4 mg PO DAILY 08/04/23 08/04/23 metformin 1,000 mg tablet 1,000 mg PO BID 08/04/23 08/04/23 Previous Rx's Medication Instructions Recorded cane #1 ea 02/21/22 Allergies Allergy/AdvReac Type Severity Reaction Status Date / Time ibuprofen [IBUPROFEN] Allergy Intermediate I-ITCHING Verified 08/04/23 12:08 Penicillins Allergy Intermediate FAINTED Verified 08/04/23 12:08 codeine [CODEINE] Allergy Unknown NA-NAUSEA/V Verified 08/04/23 12:08 OMITING pregabalin [From LYRICA] Allergy Unknown BEHAVIORAL Verified 08/04/23 12:08 CHANGES tramadol [TRAMADOL] Allergy Unknown MIGRAINES Verified 08/04/23 12:08 cyclobenzaprine Allergy Verified 08/04/23 12:08 [From Flexeril] furosemide [From Lasix] Allergy Verified 08/04/23 12:08 gabapentin Allergy Verified 08/04/23 12:08 [facility] Disclaimer: The information contained in this section may have been updated after the patient was seen, as this information can be updated by other users. Medical History Asthma Diabetes mellitus, type 2 History of gastroesophageal reflux (GERD) History of transient ischemic attack (TIA) Hyperlipidemia Surgical History History of bilateral carpal tunnel release History of cardiac catheterization History of cholecystectomy History of esophagogastroduodenoscopy (EGD) History of tonsillectomy History of wisdom tooth extraction Family History Other Family history of cancer Family history of myocardial infarction Social History Smoking Status: Never smoker second hand exposure: No alcohol intake: never substance use type: denies use current occupational status: disabled Travel in the last 8 weeks: None household members: family housing: house 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: Yes ROS Obtained: Yes other As per HPI Physical Exam General General appearance: alert and in no apparent distress Head Head exam: atraumatic and normocephalic Eye Eye exam: Present normal appearance Neck Neck exam: Present normal inspection Chest Chest inspection: Present normal inspection and symmetric chest wall rise Respiratory Respiratory exam: Present normal lung sounds bilaterally; Absent respiratory distress Cardiovascular Cardiovascular exam: Present regular rate and normal rhythm Abdominal Exam Abdominal exam: Present soft Neurological Exam Neurological exam: Present alert and oriented X3 Psychiatric Psychiatric exam: Present normal affect and normal mood Skin Skin exam: Present warm and dry Other Other exam information: Right-sided sacroiliac tenderness to palpation, deep tendon reflexes 1+ and symmetric bilaterally, sensation grossly intact at this time, no motor weakness. Medical Decision Making Medical Records Medical records reviewed: Yes I reviewed the patient's medical records. Bishop Inquiry Pt receiving controlled substance: No Vital Signs: 11/14/23 07:44 11/14/23 07:48 11/14/23 08:00 Temperature 97.8 F Temperature Source Oral Pulse Rate 84 91 H Pulse Rate [Right] 82 Respiratory Rate 18 Blood Pressure 135/80 123/72 Blood Pressure [Right Arm] 135/80 Blood Pressure Mean 98 93 Blood Pressure Mean [Right Arm] 98 02 Sat by Pulse Oximetry 96 97 97 Oxygen Delivery Method Room Air Orders (Tests/Meds): ORDERS Category Date Time Status CT bony pelvis Stat Cat Scan 11/14/23 08:[address] lumbar spine wo con Stat Cat Scan 11/14/23 08:05 Completed Medical Decision Narrative: Patient with history and exam per above presenting for evaluation of right-sided paraspinal back pain Diagnoses considered include acute on chronic SI dysfunction, pathologic fracture, stress fracture, no clinical evidence to suggest cauda equina syndrome, conus medullary syndrome at this time. ED workup and treatment included: ORDERS Category Date Time Status CT bony pelvis Stat Cat Scan 11/14/23 08:[address] lumbar spine wo con Stat Cat Scan 11/14/23 08:05 Ordered Patient declines any medications for management of her symptoms at this time. Imaging was independently visualized and interpreted by me, significant for chronic degenerative disc disease, sacroiliac osteoarthritis, no acute findings. Please refer to radiology report for full details. My clinical impression at this time is most consistent with acute on chronic sacroiliac joint pain I discussed my clinical impression with patient and answered all questions. At this time, the evidence for any other entities in the differential is insufficient to warrant any further testing or ED observation. This was explained to the patient. The patient was advised that persistent or worsening symptoms require further evaluation. I confirmed the patient's understanding of this discussion. Critical Care Critical Care Time Critical Care Time: No
[2023-11-14 07:48] VITALS: BP 135/80; PULSE 84; O2SAT 97
--- NOTE | 2023-11-14 07:56 | PC.NURSE ---
in room talking with patient at this time.
[2023-11-14 08:00] VITALS: BP 123/72; PULSE 91; O2SAT 97
--- NOTE | 2023-11-14 08:05 | CT_ITS ---
PROCEDURE INFORMATION: Exam: CT Pelvis Without Contrast; Skeletal Exam date and time: 11/14/2023 8:31 AM Age: 53 years old Clinical indication: Pain; Other: Si; Additional info: Acute on chronic low back pain, R si pain TECHNIQUE: Imaging protocol: Computed tomography of the pelvis without contrast. Exam focused on the skeleton. Radiation optimization: All CT scans at this facility use at least one of these dose optimization techniques: automated exposure control; mA and/or kV adjustment per patient size (includes targeted exams where dose is matched to clinical indication); or iterative reconstruction. COMPARISON: CT ABDOMEN PELVIS W CON 03/13/2023 11:09 AM FINDINGS: Bones/joints: There is mild bilateral hip and sacroiliac joint osteoarthritis. Soft tissues: Unremarkable. 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
--- NOTE | 2023-11-14 08:05 | CT_ITS ---
PROCEDURE INFORMATION: Exam: CT Lumbar Spine Without Contrast Exam date and time: 11/14/2023 8:28 AM Age: 53 years old Clinical indication: Low back pain; Prior surgery; Surgery date: 6+ months; Surgery type: Fracture to l5, fixed in 2019; Additional info: Acute on chronic low back pain, R si pain TECHNIQUE: Imaging protocol: Computed tomography of the lumbar spine without contrast. Radiation optimization: All CT scans at this facility use at least one of these dose optimization techniques: automated exposure control; mA and/or kV adjustment per patient size (includes targeted exams where dose is matched to clinical indication); or iterative reconstruction. COMPARISON: CR LS5 LUMBAR SPINE 5 VIEWS 02/01/2017 3:13 PM FINDINGS: Bones/joints: There is grade 1 anterolisthesis of L5 on S1 measuring 7 mm with bilateral L5 spondylolysis. The patient is status post posterior spinal fusion at L5-S1. Bilateral transpedicular screws are seen at L5 and S1. The hardware appears to be intact. There appears to be an anterior fixation plate at L5-S1. The vertebral body heights are maintained. There is advanced degenerative disc disease at L5-S1. L1-L2: No significant disc bulge or herniation. No severe spinal canal stenosis. No significant neural foraminal narrowing. L2-L3: No significant disc bulge or herniation. No severe spinal canal stenosis. No significant neural foraminal narrowing. L3-L4: No significant disc bulge or herniation. No severe spinal canal stenosis. No significant neural foraminal narrowing. L4-L5: There is mild spinal canal stenosis secondary to mild diffuse disc bulging and ligamentum flavum/facet hypertrophy. There is moderate left and mild right neural foraminal stenosis secondary to foraminal disc bulging and facet hypertrophy. L5-S1: The spinal canal appears patent. There is moderate bilateral neural foraminal stenosis secondary to spondylolisthesis, foraminal disc bulging, and facet hypertrophy. Soft tissues: Unremarkable. IMPRESSION: 1. Grade 1 spondylolisthesis at L5-S1 with bilateral L5 spondylolysis. 2. Moderate bilateral neural foraminal stenosis at L5-S1. Mild spinal canal stenosis at L4-L5. Please see above for specific findings at each level.
[2023-11-14 09:22] VITALS: BP 131/80; PULSE 89; RESP 20; TEMP 36.6; O2SAT 97
== END 2023-11-14 09:23 | disposition home or self-care (01) ==
PROVIDERS: Emergency Provider Emergency Medicine; PCP Nurse Practitioner
DX: M53.3 Sacrococcygeal disorders, not elsewhere classified (principal); X50.0XXA Overexertion from strenuous movement or load, initial encounter
CPT/HCPCS: 72131; 72192; 99284

== ENCOUNTER 2024-01-29 08:33 | Emergency (ER) | payer BC, SELFPAY ==
[2024-01-29 08:34] VITALS: BP 147/87; PULSE 95; RESP 17; TEMP 36.9; O2SAT 98; BMI 46.3
--- NOTE | 2024-01-29 08:34 | ECG_ITS ---
APPROVED REPORT Exam: Resting ECG HR:92 bpm ECG Measurements Heart Rate 92 AXES TN 128 P 40 QRSd 147 QRS -5 QT 371 T -10 QTc 421 Conclusion SINUS RHYTHM RIGHT BUNDLE BRANCH BLOCK [120+ ms QRS DURATION, UPRIGHT V1, 40+ ms S IN I/aVL/V4/V5/V6] ABNORMAL ECG No Stemi Electronically signed by : BRIAN PARSONS, 01/30/2024 01:24:59
[2024-01-29 08:37] VITALS: BP 147/87; PULSE 98; RESP 22; O2SAT 95
--- NOTE | 2024-01-29 08:40 | XR_ITS ---
PROCEDURE INFORMATION: Exam: XR Chest Exam date and time: 01/29/2024 8:39 AM Age: 53 years old Clinical indication: Cough and shortness of breath and other: Chest pain; Additional info: Chest pain, cough TECHNIQUE: Imaging protocol: Radiologic exam of the chest. Views: 2 views. COMPARISON: CR XR CHEST 2V 09/18/2023 6:13 AM FINDINGS: Lungs: Unremarkable. No consolidation. Pleural spaces: Unremarkable. No pleural effusion. No pneumothorax. Heart/Mediastinum: Unremarkable. No cardiomegaly. Bones/joints: Unremarkable. IMPRESSION: No acute findings.
--- NOTE | 2024-01-29 08:43 | ED_ITS ---
Discharge Plan Disposition Patient Disposition: Home, Self-Care Prescriptions Prescriptions: No Action metformin 1,000 mg tablet 1,000 mg PO BID acetaminophen 500 mg tablet 500 mg PO Q6H PRN (Reason: Pain) famotidine [Pepcid] 20 mg tablet 20 mg PO BID albuterol sulfate 90 mcg/actuation HFA aerosol inhaler 1 inh inhalation DAILY (DME) cane Device See Rx Instructions .Route Qty: 1 0RF Rx Instructions: As directed metformin 1,000 mg Tablet 1,000 mg PO BID diphenhydramine HCl [Benadryl Allergy] 25 mg Tablet 25 mg PO HS PRN (Reason: Allergy Symptoms) glimepiride 4 mg Tablet 4 mg PO DAILY Referrals Follow up/Referrals: Provider,Referral, MD [Referring] - See instructions Activity Restrictions/Add. Instructions Additional Instructions/Restrictions: Follow-up with primary care doctor. Please return to the emerged part with any new, concerning, worsening symptoms Clinical Impressions Clinical Impression: Chest pain Instructions Patient Instructions: DI for Atypical Chest Pain Print Language Print Language: Belarusian Discharge ED Provider: Justice Franco General Adult HPI General Chief complaint: Chest Pain Stated complaint: Chest pain Time Seen by Provider: 01/29/24 08:40 Mode of Arrival: Ambulatory Source of Information: Patient History of Present Illness HPI narrative: This is a 53-year-old female with a history of type 2 diabetes, hyperlipidemia, asthma, fibromyalgia who presents with chest pain. States that her chest pain began at about 130 this morning characterizes a stabbing pain on the left side of her chest radiating to the center. States that it has been intermittent but associated with a constant feeling of tightness in her chest. Denies any associated shortness of breath. Denies any other symptoms. States she has had intermittent pain underneath her shoulder blades for the last 2 weeks. Related Data Home Medications ?Medication ?Instructions ?Recorded ?Confirmed acetaminophen 500 mg tablet 500 mg PO Q6H PRN Pain 06/10/23 08/04/23 albuterol sulfate 90 mcg/actuation 1 inh inhalation DAILY Asthma 06/10/23 08/04/23 aerosol inhaler famotidine 20 mg tablet (Pepcid) 20 mg PO BID 06/10/23 08/04/23 metformin 1,000 mg tablet 1,000 mg PO BID 06/10/23 08/04/23 diphenhydramine HCl 25 mg tablet 25 mg PO HS PRN Allergy Symptoms 08/04/23 08/04/23 (Benadryl Allergy) glimepiride 4 mg tablet 4 mg PO DAILY 08/04/23 08/04/23 metformin 1,000 mg tablet 1,000 mg PO BID 08/04/23 08/04/23 Previous Rx's ?Medication ?Instructions ?Recorded cane #1 ea 02/21/22 Allergies Allergy/AdvReac Type Severity Reaction Status Date / Time ibuprofen [IBUPROFEN] Allergy Intermediate I-ITCHING Verified 08/04/23 12:08 Penicillins Allergy Intermediate FAINTED Verified 08/04/23 12:08 codeine [CODEINE] Allergy Unknown NA-NAUSEA/V Verified 08/04/23 12:08 OMITING pregabalin [From LYRICA] Allergy Unknown BEHAVIORAL Verified 08/04/23 12:08 CHANGES tramadol [TRAMADOL] Allergy Unknown MIGRAINES Verified 08/04/23 12:08 cyclobenzaprine Allergy Verified 08/04/23 12:08 [From Flexeril] furosemide [From Lasix] Allergy Verified 08/04/23 12:08 gabapentin Allergy Verified 08/04/23 12:08 [facility] Disclaimer: The information contained in this section may have been updated after the patient was seen, as this information can be updated by other users. Medical History Asthma Diabetes mellitus, type 2 History of gastroesophageal reflux (GERD) History of transient ischemic attack (TIA) Hyperlipidemia Surgical History History of bilateral carpal tunnel release History of cardiac catheterization History of cholecystectomy History of esophagogastroduodenoscopy (EGD) History of tonsillectomy History of wisdom tooth extraction Family History Other Family history of cancer Family history of myocardial infarction Social History Smoking Status: Current some day smoker tobacco type: cigarettes packs per day: 1 second hand exposure: No alcohol intake: never substance use type: denies use current occupational status: disabled Travel in the last 8 weeks: None household members: family housing: house 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: Yes ROS Obtained: Yes All systems reviewed & no additional complaints except as documented Physical Exam General General appearance: alert and in no apparent distress Eye Eye exam: Present normal appearance, PERRL and EOMI Respiratory Respiratory exam: Present normal lung sounds bilaterally; Absent respiratory distress Cardiovascular Cardiovascular exam: Present regular rate and normal rhythm Abdominal Exam Abdominal exam: Present soft and distention; Absent tenderness, guarding or rebound Extremities Exam Extremities exam: Present normal inspection Neurological Exam Neurological exam: Present alert and oriented X3 Skin Skin exam: Present warm and dry Medical Decision Making Medical Records Medical records reviewed: Yes I reviewed the patient's medical records. Screening: Per USPSTF and CDC recommendations, given the prevalence of disease in our region, it is our hospital?s policy to screen for HIV and viral Hepatitis for all patients aged 18 and over and those with ongoing risk factors. Bishop Inquiry Pt receiving controlled substance: No Vital Signs: 01/29/24 08:34 01/29/24 08:37 01/29/24 09:01 Temperature 98.4 F Temperature Source Oral Pulse Rate 98 H 96 H Pulse Rate [Right] 95 H Respiratory Rate 17 22 22 Blood Pressure 147/87 H 155/92 H Blood Pressure [Right Arm] 147/87 H Blood Pressure Mean 98 106 Blood Pressure Mean [Right Arm] 107 Blood Pressure Source [Right Arm] Automatic Cuff 02 Sat by Pulse Oximetry 98 95 95 Oxygen Delivery Method Room Air 01/29/24 09:34 Temperature 98.4 F Temperature Source Oral Pulse Rate 90 Pulse Rate [Right] Respiratory Rate 18 Blood Pressure 136/74 Blood Pressure [Right Arm] Blood Pressure Mean Blood Pressure Mean [Right Arm] Blood Pressure Source [Right Arm] 02 Sat by Pulse Oximetry Oxygen Delivery Method Room Air Lab Data Lab Results 01/29/24 08:40: HIV 1&2 Antibody Rapid Nonreactive 01/29/24 08:45: WBC 8.2, RBC 5.25, Hgb 15.3, Hct 47.7 H, MCV 90.8, MCH 29.0, MCHC 32.0, RDW 13.9, Plt Count 279, MPV 7.1 L, Neut % (Auto) 42.3, Lymph % (Auto) 48.9, [place] % (Auto) 4.3, Eos % (Auto) 3.6, Baso % (Auto) 0.8, Neut # (Auto) 3.5, Lymph # (Auto) 4.0, [place] # (Auto) 0.4, Eos # (Auto) 0.3, Baso # (Auto) 0.1, D-Dimer 0.41, Sodium 134 L, Potassium 3.8, Chloride 104, Carbon Dioxide 21 L, Anion Gap 12.8, BUN 17, Creatinine 0.50 L, Estimated GFR 129, Est GFR ( Amer) 156, Glucose 284 H, Calcium 10.3 H, Total Bilirubin 0.6, AST 65 H, ALT 64, Alkaline Phosphatase 86, Troponin I < 0.01, Total Protein 7.9, Albumin 4.8, Globulin 3.1, Albumin/Globulin Ratio 1.5 01/29/24 08:45 01/29/24 08:45 Orders (Tests/Meds): ORDERS Category Date Time Status Chest XR 2 view (NOT portable) [XR chest 2V] Stat Exams 01/29/24 08:40 Taken CBC w/Auto Diff [Complete Blood Count Auto Diff] Stat Lab 01/29/24 08:45 Completed CMP [Comprehensive Metabolic Panel] Stat Lab 01/29/24 08:45 Completed D-Dimer Stat Lab 01/29/24 08:45 Completed HIV (1&2) Antibody Rapid Stat Lab 01/29/24 08:40 Completed Hep C Ab with Reflex to RNA Stat Lab 01/29/24 08:40 Received Troponin I Q3H Lab 01/29/24 08:45 Completed ECG Data Tracing #1: I reviewed this ECG and interpreted as documented below: Normal sinus rhythm at a rate of 92, QTc 421, normal axis, right bundle branch block, no STEMI Medical Decision Narrative: In summary, this 53-year-old female with a history of type 2 diabetes, hyperlipidemia, asthma, fibromyalgia presents to the emergency department today with chest pain since 1:30 AM this morning. On initial evaluation patient is afebrile, hemodynamically stable, nontoxic-appearing. Differential diagnosis includes but is not limited to ACS, PE, pneumothorax, pneumonia, fibromyalgia. Based on these concerns, I ordered CBC, CMP, troponin, D-dimer, EKG, two-view chest x-ray. Considered CT PE, however will evaluate risk for pulmonary embolism with D-dimer first. ECG personally interpreted as noted above. Similar when compared to prior EKG in 09/2023. Labs personally reviewed demonstrate normal D-dimer of 0.41 which is less than the patient's age-adjusted cut off, unremarkable CBC, mild hyponatremia at 134, normal creatinine, glucose 284,. XR personally interpreted demonstrates no acute cardiopulmonary pathology. On reassessment patient in no acute distress. It was felt that we have effectively ruled out most emergent causes of patient's chest pain which was atypical. Possibly an exacerbation of her untreated fibromyalgia. She is to follow-up with primary care doctor. Discharged in stable condition. Return precautions were given. Critical Care Critical Care Time Critical Care Time: No
[2024-01-29 08:51] LABS: Basophils # 0.1 K/mm3 (0-0.2); Basophils % 0.8 % (0.1-2.0); Eosinophils # 0.3 K/mm3 (0.0-0.4); Eosinophils % 3.6 % (0.1-12.0); Hematocrit 47.7 % (37.0-47.0); Hemoglobin 15.3 g/dL (12.2-16.2); Lymphocytes % 48.9 % (10-50); Mean Corpuscular Volume 90.8 fl (81-99); Mean Platelet Volume 7.1 fl (7.4-10.4); Monocytes # 0.4 K/mm3 (0.1-1.0); Monocytes % 4.3 % (1.7-9.3); Neutrophils # 3.5 K/mm3 (1.8-7.8); Neutrophils % 42.3 % (37.0-80.0); Platelet Count 279 K/mm3 (142-424); Red Blood Count 5.25 M/mm3 (4.20-5.40); Red Cell Distribution Width 13.9 % (11.5-17.5); White Blood Count 8.2 K/mm3 (4.8-10.8)
[2024-01-29 09:00] LABS: Alanine Aminotransferase 64 U/L (12-78); Albumin Level 4.8 g/dl (3.5-5.0); Albumin/Globulin Ratio 1.5 (1.1-1.8); Alkaline Phosphatase 86 U/L (38-126); Anion Gap 12.8 mEq/L (5-15); Aspartate Amino Transferase 65 U/L (14-36); Bilirubin,Total 0.6 mg/dl (0.2-1.3); Blood Urea Nitrogen 17 mg/dl (7-17); Calcium 10.3 mg/dl (8.4-10.2); Carbon Dioxide 21 mmol/L (22.0-30.0); Chloride 104 mmol/L (98-107); Estimated Glomerular Filt Rate 129 ml/min (>60); GFR (African American) 156 ML/MIN (>60); Globulin 3.1 g/dL (1.3-3.2); Glucose 284 mg/dl (74-100); Potassium 3.8 mmoL/L (3.5-5.1); Sodium 134 mmol/L (136-145); Total Protein,Serum 7.9 g/dl (6.3-8.2)
[2024-01-29 09:01] VITALS: BP 155/92; PULSE 96; RESP 22; O2SAT 95
[2024-01-29 09:05] LABS: D-Dimer 0.41 ug/mL (0.0-0.5)
[2024-01-29 09:30] LABS: Troponin I < 0.01 ng/ml (0.00-0.034)
--- NOTE | 2024-01-29 09:32 | PC.NURSE ---
updated pt with results thus far. Dr. Franco now at bedside
--- NOTE | 2024-01-29 09:33 | PC.NURSE ---
DR FLORES AT BEDSIDE TO REEVALUATE PT
[2024-01-29 09:34] VITALS: BP 136/74; PULSE 90; RESP 18; TEMP 36.9; O2SAT 97
[2024-01-29 09:42] LABS: HIV (1&2) Antibody Rapid NONREACTIVE (NONREACTIVE)
[2024-01-30 09:08] LABS: HCV Ab Non Reactive (Non Reactive)
== END 2024-01-29 09:54 | disposition home or self-care (01) ==
PROVIDERS: Emergency Provider Student in an Organized Health Care Education/Training Program; PCP Nurse Practitioner
DX: R07.9 Chest pain, unspecified (principal); E11.9 Type 2 diabetes mellitus without complications; E78.5 Hyperlipidemia, unspecified; M54.6 Pain in thoracic spine; J45.909 Unspecified asthma, uncomplicated; M79.7 Fibromyalgia; Z86.73 Personal history of transient ischemic attack (TIA), and cerebral infarction without residual deficits; F17.210 Nicotine dependence, cigarettes, uncomplicated
CPT/HCPCS: 71046; 80053; 84484; 85025; 85378; 86803; 87389; 93005; 99285

== ENCOUNTER 2024-04-04 18:19 | Emergency (ER) | payer BC, SELFPAY ==
[2024-04-04] VITALS (7 sets, daily range): BP systolic 115–161; BP diastolic 51–90; PULSE 85–112; RESP 18–20; TEMP 36.8–37.1; O2SAT 91–98; BMI 27.4; BMI 45.7
--- NOTE | 2024-04-04 18:22 | ECG_ITS ---
APPROVED REPORT Exam: Resting ECG HR:87 bpm ECG Measurements Heart Rate 87 AXES WV 136 P 52 QRSd 152 QRS 15 QT 384 T 15 QTc 428 Conclusion SINUS RHYTHM RIGHT BUNDLE BRANCH BLOCK [120+ ms QRS DURATION, UPRIGHT V1, 40+ ms S IN I/aVL/V4/V5/V6] Electronically signed by : EMIGDIO CORDERO, 04/04/2024 22:36:06
--- NOTE | 2024-04-04 18:28 | XR_ITS ---
PROCEDURE INFORMATION: Exam: XR Chest Exam date and time: 04/04/2024 6:41 PM Age: 53 years old Clinical indication: Pain; Other: Nausea/vomiting; Other: Cp; Additional info: Chest pain, n/v TECHNIQUE: Imaging protocol: Radiologic exam of the chest. Views: 1 view. COMPARISON: CR XR CHEST 2V 01/29/2024 8:39 AM FINDINGS: Lungs: Low lung volumes. Pulmonary vasculature grossly normal. No gross pulmonary infiltrates or edema pattern. Minimal subsegmental atelectasis in the lung bases, commensurate with the degree of pulmonary expansion. Pleural spaces: No pleural effusion. No pneumothorax. Heart/Mediastinum: Heart size normal. No tracheal/mediastinal shift. Bones/joints: No acute osseous abnormalities are identified. IMPRESSION: 1. Low lung volumes. 2. No acute process is evident radiographically.
--- NOTE | 2024-04-04 18:28 | HMH.EDGENADL ---
Discharge Plan Prescriptions Prescriptions: No Action metformin 1,000 mg tablet 1,000 mg PO BID acetaminophen 500 mg tablet 500 mg PO Q6H PRN (Reason: Pain) famotidine [Pepcid] 20 mg tablet 20 mg PO BID albuterol sulfate 90 mcg/actuation HFA aerosol inhaler 1 inh inhalation DAILY (DME) cane Device See Rx Instructions .Route Qty: 1 0RF Rx Instructions: As directed metformin 1,000 mg Tablet 1,000 mg PO BID diphenhydramine HCl [Benadryl Allergy] 25 mg Tablet 25 mg PO HS PRN (Reason: Allergy Symptoms) glimepiride 4 mg Tablet 4 mg PO DAILY Referrals Follow up/Referrals: Provider,Referral, MD [Primary Care Provider] - See instructions Print Language Print Language: Peruvian Discharge ED Provider: Blair Mo Adult HPI General Stated complaint: chest pain Time Seen by Provider: 04/04/24 18:26 History of Present Illness HPI narrative: Please note that above description of symptoms, in this electronic medical record under categorization of recalled from ER triage doctor by RN are reflective of an initial nursing assessment, however, is not reflective of my full history and physical exam that was personally taken and clarified. Consequentially, this preceding description of symptoms, which may include the patient's categorized chief complaint in the EMR, do not reflect my personal clinical impression, and the ultimate description of history of present illness and patient stated complaints should be deferred to this section of the note. Unless stated otherwise or congruent with this section of the note, additional signs, symptoms, or incongruence should be interpreted as inaccurate with my clinical impression. Related Data Home Medications ?Medication ?Instructions ?Recorded ?Confirmed acetaminophen 500 mg tablet 500 mg PO Q6H PRN Pain 06/10/23 08/04/23 albuterol sulfate 90 mcg/actuation 1 inh inhalation DAILY Asthma 06/10/23 08/04/23 aerosol inhaler famotidine 20 mg tablet (Pepcid) 20 mg PO BID 06/10/23 08/04/23 metformin 1,000 mg tablet 1,000 mg PO BID 06/10/23 08/04/23 diphenhydramine HCl 25 mg tablet 25 mg PO HS PRN Allergy Symptoms 08/04/23 08/04/23 (Benadryl Allergy) glimepiride 4 mg tablet 4 mg PO DAILY 08/04/23 08/04/23 metformin 1,000 mg tablet 1,000 mg PO BID 08/04/23 08/04/23 Previous Rx's ?Medication ?Instructions ?Recorded cane #1 ea 02/21/22 Allergies Allergy/AdvReac Type Severity Reaction Status Date / Time ibuprofen (IBUPROFEN) Allergy Intermediate I-ITCHING Verified 08/04/23 12:08 Penicillins Allergy Intermediate FAINTED Verified 08/04/23 12:08 codeine (CODEINE) Allergy Unknown NA-NAUSEA/V Verified 08/04/23 12:08 OMITING pregabalin (From LYRICA) Allergy Unknown BEHAVIORAL Verified 08/04/23 12:08 CHANGES tramadol (TRAMADOL) Allergy Unknown MIGRAINES Verified 08/04/23 12:08 cyclobenzaprine (From Allergy Verified 08/04/23 12:08 Flexeril) furosemide (From Lasix) Allergy Verified 08/04/23 12:08 gabapentin Allergy Verified 08/04/23 12:08 PFSH [facility] Disclaimer: The information contained in this section may have been updated after the patient was seen, as this information can be updated by other users. Medical History Asthma Diabetes mellitus, type 2 History of gastroesophageal reflux (GERD) History of transient ischemic attack (TIA) Hyperlipidemia Surgical History History of bilateral carpal tunnel release History of cardiac catheterization History of cholecystectomy History of esophagogastroduodenoscopy (EGD) History of tonsillectomy History of wisdom tooth extraction Family History Other Family history of cancer Family history of myocardial infarction Social History Smoking Status: Current some day smoker tobacco type: cigarettes packs per day: 1 second hand exposure: No alcohol intake: never substance use type: denies use current occupational status: disabled household members: family housing: house 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: Yes Other Medical History Have you received the Flu Vaccine for this season: No Have you received the Pneumonia Vaccine: No ROS Obtained: Yes other As per HPI Physical Exam General General appearance: alert and in no apparent distress Head Head exam: atraumatic and normocephalic Eye Eye exam: Present normal appearance Neck Neck exam: Present normal inspection Chest Chest inspection: Present normal inspection and symmetric chest wall rise Respiratory Respiratory exam: Present normal lung sounds bilaterally; Absent respiratory distress Cardiovascular Cardiovascular exam: Present regular rate and normal rhythm Abdominal Exam Abdominal exam: Present soft Neurological Exam Neurological exam: Present alert and oriented X3 Psychiatric Psychiatric exam: Present normal affect and normal mood Skin Skin exam: Present warm and dry Medical Decision Making Medical Records Medical records reviewed: Yes I reviewed the patient's medical records. Screening: Per USPSTF and CDC recommendations, given the prevalence of disease in our region, it is our hospital?s policy to screen for HIV and viral Hepatitis for all patients aged 18 and over and those with ongoing risk factors. Bishop Inquiry Pt receiving controlled substance: No Orders (Tests/Meds): ED MEDICATIONS Generic Name Dose Route Start Last Admin Trade Name Freq PRN Reason Stop Dose Admin Promethazine HCl 25 mg 04/04/24 18:26 Promethazine Hcl 25mg/Ml 1ml Vial IV 04/04/24 18:27 ONCE ONE Sodium Chloride 25 ml 04/04/24 18:26 Sodium Chloride 0.9% 25ml Bag IV 04/04/24 18:27 ONCE ONE ORDERS Category Date Time Status XR chest 2V Stat Exams 04/04/24 18:28 Ordered BNP [NT Pro Brain Natriuretic Pep.] Stat Lab 04/04/24 18:26 Ordered CBC w/Auto Diff [Complete Blood Count Auto Diff] Stat Lab 04/04/24 18:26 Ordered CMP [Comprehensive Metabolic Panel] Stat Lab 04/04/24 18:26 Ordered Lipase Stat Lab 04/04/24 18:26 Ordered MAG [Magnesium] Stat Lab 04/04/24 18:26 Ordered Troponin I Q3H Lab 04/04/24 18:26 Ordered Troponin I Q3H Lab 04/04/24 21:30 Ordered Medical Decision Narrative: Patient with history and exam per above presenting for evaluation of Diagnoses considered include ED workup and treatment included: Labs were independently interpreted by me, significant for Imaging was independently visualized and interpreted by me, significant for Please refer to radiology report for full details. My clinical impression at this time is most consistent with I discussed my clinical impression with patient and answered all questions. At this time, the evidence for any other entities in the differential is insufficient to warrant any further testing or ED observation. This was explained to the patient. The patient was advised that persistent or worsening symptoms require further evaluation. Critical Care Critical Care Time Critical Care Time: No
--- NOTE | 2024-04-04 18:33 | HMH.EDCP ---
Discharge Plan Disposition Patient Disposition: Home, Self-Care Condition: Good Prescriptions Prescriptions: New pantoprazole [Protonix] 40 mg tablet,delayed release (DR/EC) 40 mg PO DAILY Qty: 30 0RF No Action metformin 1,000 mg tablet 1,000 mg PO BID acetaminophen 500 mg tablet 500 mg PO Q6H PRN (Reason: Pain) famotidine [Pepcid] 20 mg tablet 20 mg PO BID albuterol sulfate 90 mcg/actuation HFA aerosol inhaler 1 inh inhalation DAILY (DME) cane Device See Rx Instructions .Route Qty: 1 0RF Rx Instructions: As directed metformin 1,000 mg Tablet 1,000 mg PO BID diphenhydramine HCl [Benadryl Allergy] 25 mg Tablet 25 mg PO HS PRN (Reason: Allergy Symptoms) glimepiride 4 mg Tablet 4 mg PO DAILY Referrals Follow up/Referrals: Delgado Panda II, MD [Staff Physician] - See instructions Provider,MD Yi [Primary Care Provider] - See instructions Activity Restrictions/Add. Instructions Additional Instructions/Restrictions: I have sent in a proton pump inhibitor to your pharmacy. Please start taking it as soon as you get it. I am referring you to gastroenterology as you have changes associated with esophagitis and a hiatal hernia. Follow-up with your PCP next week. Follow-up sooner for any new or not improving symptoms or return to the ER as needed Clinical Impressions Clinical Impression: Esophagitis Print Language Print Language: Croatian Discharge ED Provider: Blair Mo HPI <MYRTLE Talavera - Last Filed: 04/04/24 21:17> General Chief Complaint: Chest Pain Stated Complaint: chest pain Time Seen by Provider: 04/04/24 18:26 History of Present Illness HPI narrative: Patient presents for evaluation of nausea and epigastric abdominal pain. Patient had acute onset of epigastric abdominal pain followed by nausea this afternoon. She does not have a cardiac history but is morbidly obese with a BMI of 45, has a history of dysphagia paresthesias polyneuropathy and is a type II diabetic not on insulin. She denies shortness of breath fever chills hemoptysis hematochezia melena endorses nausea but no vomiting or diarrhea. Related Data Home Medications ?Medication ?Instructions ?Recorded ?Confirmed acetaminophen 500 mg tablet 500 mg PO Q6H PRN Pain 06/10/23 08/04/23 albuterol sulfate 90 mcg/actuation 1 inh inhalation DAILY Asthma 06/10/23 08/04/23 aerosol inhaler famotidine 20 mg tablet (Pepcid) 20 mg PO BID 06/10/23 08/04/23 metformin 1,000 mg tablet 1,000 mg PO BID 06/10/23 08/04/23 diphenhydramine HCl 25 mg tablet 25 mg PO HS PRN Allergy Symptoms 08/04/23 08/04/23 (Benadryl Allergy) glimepiride 4 mg tablet 4 mg PO DAILY 08/04/23 08/04/23 metformin 1,000 mg tablet 1,000 mg PO BID 08/04/23 08/04/23 Previous Rx's ?Medication ?Instructions ?Recorded cane #1 ea 02/21/22 pantoprazole 40 mg tablet,delayed 40 mg PO DAILY #30 tabs 04/04/24 release (Protonix) Allergies Allergy/AdvReac Type Severity Reaction Status Date / Time ibuprofen (IBUPROFEN) Allergy Intermediate I-ITCHING Verified 08/04/23 12:08 Penicillins Allergy Intermediate FAINTED Verified 08/04/23 12:08 codeine (CODEINE) Allergy Unknown NA-NAUSEA/V Verified 08/04/23 12:08 OMITING pregabalin (From LYRICA) Allergy Unknown BEHAVIORAL Verified 08/04/23 12:08 CHANGES tramadol (TRAMADOL) Allergy Unknown MIGRAINES Verified 08/04/23 12:08 cyclobenzaprine (From Allergy Verified 08/04/23 12:08 Flexeril) furosemide (From Lasix) Allergy Verified 08/04/23 12:08 gabapentin Allergy Verified 08/04/23 12:08 PFS <MYRTLE Talavera - Last Filed: 04/04/24 21:17> [facility] Disclaimer: The information contained in this section may have been updated after the patient was seen, as this information can be updated by other users. Medical History Asthma Diabetes mellitus, type 2 History of gastroesophageal reflux (GERD) History of transient ischemic attack (TIA) Hyperlipidemia Surgical History History of bilateral carpal tunnel release History of cardiac catheterization History of cholecystectomy History of esophagogastroduodenoscopy (EGD) History of tonsillectomy History of wisdom tooth extraction Family History Other Family history of cancer Family history of myocardial infarction Social History Smoking Status: Never smoker second hand exposure: No alcohol intake: never substance use type: denies use current occupational status: disabled household members: family housing: house 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: Yes Other Medical History Have you received the Flu Vaccine for this season: No Have you received the Pneumonia Vaccine: No <MYRTLE Talavera - Last Filed: 04/04/24 21:17> ROS Obtained: Yes Systems reviewed as appropriate & no additional complaints except as documented Physical Exam <MYRTLE Talavera - Last Filed: 04/04/24 21:17> General General appearance: alert and in no apparent distress Respiratory Respiratory exam: Present normal lung sounds bilaterally Cardiovascular Cardiovascular exam: Present regular rate Neurological Exam Neurological exam: Present alert and oriented X3 HEART Score <MYRTLE Talavera - Last Filed: 04/04/24 21:17> HEART Score HEART Score assessment performed?: Yes History (anamnesis): Slightly suspicious ECG: Non-specific disturbance Age: 45-65 years Risk factors: 3 or more risk factors Troponin: </= normal limit HEART Score: 4 <Blair Mo MD - Last Filed: 04/04/24 21:47> HEART Score HEART Score: 4 Critical Care <MYRTLE Talavera - Last Filed: 04/04/24 21:17> Critical Care Time Critical Care Time: No Medical Decision Making <MYRTLE Talavera - Last Filed: 04/04/24 21:17> Medical Records Medical records reviewed: Yes I reviewed the patient's medical records. Bishop Inquiry Pt receiving controlled substance: No Vital Signs Vital Signs: 04/04/24 18:19 04/04/24 18:23 04/04/24 18:44 Temperature 98.2 F Temperature Source Oral Pulse Rate 94 H 94 H Pulse Rate [Right] 85 Respiratory Rate 18 Blood Pressure 160/90 H 115/51 L Blood Pressure [Right Arm] 161/80 H Blood Pressure Mean [Right Arm] 107 Blood Pressure Source Blood Pressure Source [Right Arm] Automatic Cuff Blood Pressure Position 02 Sat by Pulse Oximetry 98 93 L 91 L Oxygen Delivery Method Room Air 04/04/24 18:45 04/04/24 19:00 04/04/24 20:31 Temperature Temperature Source Pulse Rate 93 H 91 H 105 H Pulse Rate [Right] Respiratory Rate Blood Pressure 122/55 L 124/78 Blood Pressure [Right Arm] Blood Pressure Mean [Right Arm] Blood Pressure Source Blood Pressure Source [Right Arm] Blood Pressure Position 02 Sat by Pulse Oximetry 92 L 92 L 94 L Oxygen Delivery Method 04/04/24 21:24 Temperature 98.8 F Temperature Source Oral Pulse Rate 112 H Pulse Rate [Right] Respiratory Rate 20 Blood Pressure 129/76 Blood Pressure [Right Arm] Blood Pressure Mean [Right Arm] Blood Pressure Source Automatic Cuff Blood Pressure Source [Right Arm] Blood Pressure Position Sitting 02 Sat by Pulse Oximetry Oxygen Delivery Method Room Air Lab Data Lab results reviewed: Yes I reviewed the patient's lab results. Labs: Lab Results 04/04/24 18:27: WBC 9.2, RBC 5.68 H, Hgb 16.2, Hct 48.9 H, MCV 86.1, MCH 28.5, MCHC 33.0, RDW 13.8, Plt Count 274, MPV 7.6, Neut % (Auto) 77.7, Lymph % (Auto) 18.0, [place] % (Auto) 2.0, Eos % (Auto) 1.5, Baso % (Auto) 0.6, Neut # (Auto) 7.2, Lymph # (Auto) 1.7, [place] # (Auto) 0.2, Eos # (Auto) 0.1, Baso # (Auto) 0.1, Sodium 137, Potassium 3.5, Chloride 100, Carbon Dioxide 23, Anion Gap 17.5 H, BUN 18 H, Creatinine 0.60, Estimated Creat Clear 127, Estimated GFR 104, Est GFR ( Amer) 126, Glucose 307 H, Calcium 9.6, Magnesium 1.7, Total Bilirubin 0.6, AST 92 H, ALT 74, Alkaline Phosphatase 105, Troponin I < 0.01, NT-Pro-B Natriuret Pep < 20.0, Total Protein 7.7, Albumin 4.5, Globulin 3.2, Albumin/Globulin Ratio 1.4, Lipase 110 04/04/24 18:27 04/04/24 18:27 Response Orders (Tests/Meds): ED MEDICATIONS Discontinued Medications Generic Name Dose Route Start Last Admin Trade Name Rodolfoq PRN Reason Stop Dose Admin Belladonna Alkaloids 60 ml 04/04/24 19:00 04/04/24 19:08 Belladonna Alkaloids 60 Ml Ml PO 04/04/24 19:01 60 ml ONCE ONE Administration Famotidine 20 mg 04/04/24 18:29 04/04/24 19:05 Famotidine 20mg/2ml Vial IV 04/04/24 18:30 20 mg ONCE ONE Administration Iopamidol 75 ml 04/04/24 20:18 04/04/24 20:19 Iopamidol-370 (76%);100ml Bottle IV 04/04/24 20:19 75 ml ONCE ONE Administration Promethazine HCl 25 mg 04/04/24 18:26 04/04/24 19:10 Promethazine Hcl 25mg/Ml 1ml Vial IV 04/04/24 18:27 Not Given ONCE ONE Promethazine HCl 25 mg 04/04/24 19:00 04/04/24 19:08 Promethazine Hcl 25mg/Ml 1ml Vial IV 04/04/24 19:01 25 mg ONCE ONE Administration Sodium Chloride 25 ml 04/04/24 18:26 04/04/24 19:08 Sodium Chloride 0.9% 25ml Bag IV 04/04/24 18:27 25 ml ONCE ONE Administration Sodium Chloride 8 ml 04/04/24 18:29 Sodium Chloride 0.9% 10ml Vial IV 05/04/24 18:28 NEEDED PRN dilute pepcid Sodium Chloride 25 ml 04/04/24 19:00 04/04/24 19:09 Sodium Chloride 0.9% 25ml Bag IV 04/04/24 19:01 Not Given ONCE ONE Sodium Chloride 10 ml 04/04/24 20:18 04/04/24 20:19 Sodium Chloride 0.9% 10ml Syr (Rad Only) IV 04/04/24 20:19 10 ml ONCE ONE Administration ORDERS Category Date Time Status CT abdomen pelvis w con Stat Cat Scan 04/04/24 18:59 Completed XR chest portable Stat Exams 04/04/24 18:28 Completed BNP [NT Pro Brain Natriuretic Pep.] Stat Lab 04/04/24 18:27 Completed CBC w/Auto Diff [Complete Blood Count Auto Diff] Stat Lab 04/04/24 18:27 Completed CMP [Comprehensive Metabolic Panel] Stat Lab 04/04/24 18:27 Completed Lipase Stat Lab 04/04/24 18:27 Completed MAG [Magnesium] Stat Lab 04/04/24 18:27 Completed Troponin I Q3H Lab 04/04/24 18:27 Completed MDM Narrative Medical Decision Narrative: In summary patient is a 53-year-old female who presents to the emergency department for evaluation of epigastric abdominal pain. Patient is normotensive with a blood pressure of 161/80 with a pulse of 85 breathing 18 times a minute satting at 98% on room air upon arrival, and a temperature of 98.2. Physical exam is remarkable for exquisite epigastric abdominal tenderness to palpation. Patient states that it radiates to her back. Bowel sounds are normal. Breath sounds are clear and equal bilaterally to the bases. Patient is centrally obese making abdominal exam difficult. Bowel sounds are present but distant.. Differential diagnosis includes ACS versus esophageal spasm versus gastritis versus pancreatitis etc. Initial workup will be conducted with hematologic labs urinalysis chest x-ray CT scan abdomen pelvis. Initial interventions include crystalloid bolus Toradol Tylenol GI cocktail. Initial workup reviewed by me shows that her white count is normal at 9.2 with no neutrophilic shift CMP is significant for a gap of 17.5 a BUN of 18 and glucose of 307 and the remainder of her hematologic labs are nonactionable. My informal interpretation of her CT scan abdomen pelvis shows shows distal esophageal thickening prior to radiology read. Radiology saw similar however they also saw possible early signs of rectal prolapse although patient is asymptomatic.. Upon repeat evaluation she reported complete resolution of her symptoms after initial intervention. Given this patient is appropriate for discharge with referral to gastroenterology for endoscopy. <Blair Mo MD - Last Filed: 04/04/24 21:47> Vital Signs Vital Signs: 04/04/24 18:19 04/04/24 18:23 04/04/24 18:44 Temperature 98.2 F Temperature Source Oral Pulse Rate 94 H 94 H Pulse Rate [Right] 85 Respiratory Rate 18 Blood Pressure 160/90 H 115/51 L Blood Pressure [Right Arm] 161/80 H Blood Pressure Mean [Right Arm] 107 Blood Pressure Source Blood Pressure Source [Right Arm] Automatic Cuff Blood Pressure Position 02 Sat by Pulse Oximetry 98 93 L 91 L Oxygen Delivery Method Room Air 04/04/24 18:45 04/04/24 19:00 04/04/24 20:31 Temperature Temperature Source Pulse Rate 93 H 91 H 105 H Pulse Rate [Right] Respiratory Rate Blood Pressure 122/55 L 124/78 Blood Pressure [Right Arm] Blood Pressure Mean [Right Arm] Blood Pressure Source Blood Pressure Source [Right Arm] Blood Pressure Position 02 Sat by Pulse Oximetry 92 L 92 L 94 L Oxygen Delivery Method 04/04/24 21:24 Temperature 98.8 F Temperature Source Oral Pulse Rate 112 H Pulse Rate [Right] Respiratory Rate 20 Blood Pressure 129/76 Blood Pressure [Right Arm] Blood Pressure Mean [Right Arm] Blood Pressure Source Automatic Cuff Blood Pressure Source [Right Arm] Blood Pressure Position Sitting 02 Sat by Pulse Oximetry Oxygen Delivery Method Room Air Lab Data Labs: Lab Results 04/04/24 18:27: WBC 9.2, RBC 5.68 H, Hgb 16.2, Hct 48.9 H, MCV 86.1, MCH 28.5, MCHC 33.0, RDW 13.8, Plt Count 274, MPV 7.6, Neut % (Auto) 77.7, Lymph % (Auto) 18.0, [place] % (Auto) 2.0, Eos % (Auto) 1.5, Baso % (Auto) 0.6, Neut # (Auto) 7.2, Lymph # (Auto) 1.7, [place] # (Auto) 0.2, Eos # (Auto) 0.1, Baso # (Auto) 0.1, Sodium 137, Potassium 3.5, Chloride 100, Carbon Dioxide 23, Anion Gap 17.5 H, BUN 18 H, Creatinine 0.60, Estimated Creat Clear 127, Estimated GFR 104, Est GFR ( Amer) 126, Glucose 307 H, Calcium 9.6, Magnesium 1.7, Total Bilirubin 0.6, AST 92 H, ALT 74, Alkaline Phosphatase 105, Troponin I < 0.01, NT-Pro-B Natriuret Pep < 20.0, Total Protein 7.7, Albumin 4.5, Globulin 3.2, Albumin/Globulin Ratio 1.4, Lipase 110 Response Orders (Tests/Meds): ED MEDICATIONS Discontinued Medications Generic Name Dose Route Start Last Admin Trade Name Freq PRN Reason Stop Dose Admin Belladonna Alkaloids 60 ml 04/04/24 19:00 04/04/24 19:08 Belladonna Alkaloids 60 Ml Ml PO 04/04/24 19:01 60 ml ONCE ONE Administration Famotidine 20 mg 04/04/24 18:29 04/04/24 19:05 Famotidine 20mg/2ml Vial IV 04/04/24 18:30 20 mg ONCE ONE Administration Iopamidol 75 ml 04/04/24 20:18 04/04/24 20:19 Iopamidol-370 (76%);100ml Bottle IV 04/04/24 20:19 75 ml ONCE ONE Administration Promethazine HCl 25 mg 04/04/24 18:26 04/04/24 19:10 Promethazine Hcl 25mg/Ml 1ml Vial IV 04/04/24 18:27 Not Given ONCE ONE Promethazine HCl 25 mg 04/04/24 19:00 04/04/24 19:08 Promethazine Hcl 25mg/Ml 1ml Vial IV 04/04/24 19:01 25 mg ONCE ONE Administration Sodium Chloride 25 ml 04/04/24 18:26 04/04/24 19:08 Sodium Chloride 0.9% 25ml Bag IV 04/04/24 18:27 25 ml ONCE ONE Administration Sodium Chloride 8 ml 04/04/24 18:29 Sodium Chloride 0.9% 10ml Vial IV 05/04/24 18:28 NEEDED PRN dilute pepcid Sodium Chloride 25 ml 04/04/24 19:00 04/04/24 19:09 Sodium Chloride 0.9% 25ml Bag IV 04/04/24 19:01 Not Given ONCE ONE Sodium Chloride 10 ml 04/04/24 20:18 04/04/24 20:19 Sodium Chloride 0.9% 10ml Syr (Rad Only) IV 04/04/24 20:19 10 ml ONCE ONE Administration ORDERS Category Date Time Status CT abdomen pelvis w con Stat Cat Scan 04/04/24 18:59 Completed XR chest portable Stat Exams 04/04/24 18:28 Completed BNP [NT Pro Brain Natriuretic Pep.] Stat Lab 04/04/24 18:27 Completed CBC w/Auto Diff [Complete Blood Count Auto Diff] Stat Lab 04/04/24 18:27 Completed CMP [Comprehensive Metabolic Panel] Stat Lab 04/04/24 18:27 Completed Lipase Stat Lab 04/04/24 18:27 Completed MAG [Magnesium] Stat Lab 04/04/24 18:27 Completed Troponin I Q3H Lab 04/04/24 18:27 Completed MDM Narrative Medical Decision Narrative: In summary patient is a 53-year-old female who presents to the emergency department for evaluation of epigastric abdominal pain. Patient is normotensive with a blood pressure of 161/80 with a pulse of 85 breathing 18 times a minute satting at 98% on room air upon arrival, and a temperature of 98.2. Physical exam is remarkable for exquisite epigastric abdominal tenderness to palpation. Patient states that it radiates to her back. Bowel sounds are normal. Breath sounds are clear and equal bilaterally to the bases. Patient is centrally obese making abdominal exam difficult. Bowel sounds are present but distant.. Differential diagnosis includes ACS versus esophageal spasm versus gastritis versus pancreatitis etc. Initial workup will be conducted with hematologic labs urinalysis chest x-ray CT scan abdomen pelvis. Initial interventions include crystalloid bolus Toradol Tylenol GI cocktail. Initial workup reviewed by me shows that her white count is normal at 9.2 with no neutrophilic shift CMP is significant for a gap of 17.5 a BUN of 18 and glucose of 307 and the remainder of her hematologic labs are nonactionable. My informal interpretation of her CT scan abdomen pelvis shows shows distal esophageal thickening prior to radiology read. Radiology saw similar however they also saw possible early signs of rectal prolapse although patient is asymptomatic.. Upon repeat evaluation she reported complete resolution of her symptoms after initial intervention. Given this patient is appropriate for discharge with referral to gastroenterology for endoscopy. I was consulted by the ADELINA, and we discussed the complexity of the problems being addressed.I approved the treatment and management plan for this patient?s care in the Emergency Department, thus performing a substantive portion of the medical decision making.Signed, Blair Mo MD
[2024-04-04 18:34] LABS: Basophils # 0.1 K/mm3 (0-0.2); Basophils % 0.6 % (0.1-2.0); Eosinophils # 0.1 K/mm3 (0.0-0.4); Eosinophils % 1.5 % (0.1-12.0); Hematocrit 48.9 % (37.0-47.0); Hemoglobin 16.2 g/dL (12.2-16.2); Lymphocytes # 1.7 K/mm3 (0.7-4.5); Mean Corpuscular Hemoglobin 28.5 pg (27.0-31.2); Mean Corpuscular Volume 86.1 fl (81-99); Mean Platelet Volume 7.6 fl (7.4-10.4); Monocytes # 0.2 K/mm3 (0.1-1.0); Neutrophils # 7.2 K/mm3 (1.8-7.8); Neutrophils % 77.7 % (37.0-80.0); Platelet Count 274 K/mm3 (142-424); Red Blood Count 5.68 M/mm3 (4.20-5.40); Red Cell Distribution Width 13.8 % (11.5-17.5); White Blood Count 9.2 K/mm3 (4.8-10.8)
[2024-04-04 18:52] LABS: Albumin Level 4.5 g/dl (3.5-5.0); Chloride 100 mmol/L (98-107); Potassium 3.5 mmoL/L (3.5-5.1); Sodium 137 mmol/L (136-145)
[2024-04-04 18:54] LABS: Blood Urea Nitrogen 18 mg/dl (7-17); Creatinine Clearance Estimated 127 mL/min (50-200); Estimated Glomerular Filt Rate 104 ml/min (>60); GFR (African American) 126 ML/MIN (>60)
[2024-04-04 18:55] LABS: Alanine Aminotransferase 74 U/L (12-78); Albumin/Globulin Ratio 1.4 (1.1-1.8); Alkaline Phosphatase 105 U/L (38-126); Aspartate Amino Transferase 92 U/L (14-36); Bilirubin,Total 0.6 mg/dl (0.2-1.3); Calcium 9.6 mg/dl (8.4-10.2); Globulin 3.2 g/dL (1.3-3.2); Glucose 307 mg/dl (74-100); Lipase 110 U/L (23-300); Magnesium 1.7 mg/dl (1.6-2.3); Total Protein,Serum 7.7 g/dl (6.3-8.2)
--- NOTE | 2024-04-04 18:59 | CT_ITS ---
PROCEDURE INFORMATION: Exam: CT Abdomen And Pelvis With Contrast Exam date and time: 04/04/2024 8:17 PM Age: 53 years old Clinical indication: Abdominal pain; Additional info: Acute epigastric abdominal pain TECHNIQUE: Imaging protocol: Computed tomography of the abdomen and pelvis with contrast. Radiation optimization: All CT scans at this facility use at least one of these dose optimization techniques: automated exposure control; mA and/or kV adjustment per patient size (includes targeted exams where dose is matched to clinical indication); or iterative reconstruction. Contrast material: ISOVUE; Contrast volume: 75 ml; Contrast route: IV; COMPARISON: CT BONY PELVIS 11/14/2023 8:31 AM FINDINGS: Lungs: Granulomatous calcification in the right lung base. Minor subsegmental atelectasis in both lung bases. Heart: Heart size normal. Diaphragm: Small hiatal hernia. Question mild distal esophageal wall thickening, although contracted status limits assessment, cannot exclude mild esophagitis. Liver: Hepatomegaly measuring 24 cm craniocaudal. Moderate hepatic steatosis. Normal contour. No mass lesions. No intrahepatic biliary ductal dilatation. Gallbladder and biliary ducts: Prior cholecystectomy with expected mild postoperative dilatation of the common bile duct. Pancreas: Mild pancreatic atrophy without acute abnormality. No pancreatic ductal dilatation. Spleen: Mild splenomegaly measuring 13.9 cm. No focal splenic lesions. Adrenal glands: Normal. No adrenal mass. Kidneys and ureters: No acute abnormalities. No hydronephrosis or hydroureter. No urinary tract stones are identified. There is a low-density circumscribed right renal cortical lesion suggesting renal cyst for which no further imaging evaluation is required. Stomach and bowel: The small bowel is nondilated with no gross abnormality. No acute colonic abnormalities. Moderate distal colonic diverticulosis without diverticulitis. Low-lying anorectal junction lying about 6 cm below the inferior pubococcygeal line, suggesting peroneal descending syndrome, correlate clinically for rectal prolapse. Appendix: The appendix is normal in caliber and demonstrates no evidence of appendicitis. Intraperitoneal space: No peritoneal free fluid or air. Vasculature: No acute process. No abdominal aortic aneurysm. Mild calcific atherosclerosis. Lymph nodes: No adenopathy. Urinary bladder: Urinary bladder is largely contracted with bladder base about 2 cm below the inferior pubococcygeal line. Reproductive: Low-lying uterus and vaginal vault. Bilateral Essure microinserts noted, without gross complication. Bones/joints: No acute osseous abnormalities. Osteopenia. Chronic bilateral L5 spondylolysis with anterior/posterior fusion L5-S1 demonstrating no gross hardware complication. Mild thoracolumbar spondylosis. Soft tissues: No acute soft tissue abnormalities. IMPRESSION: 1. Small hiatal hernia with mild distal esophageal wall thickening suspicious for mild changes of esophagitis. Consider follow-up endoscopic assessment or esophagram as clinically indicated. No evidence of obstruction or perforation. 2. Hepatomegaly and hepatic steatosis. 3. Mild splenomegaly. 4. Changes of chronic descending perineal syndrome. Anorectal junction is particularly low-lying, correlate clinically for rectal prolapse. 5. Additional nonemergent findings detailed above. COMMENTS: Consistent with the [employer]'s Incidental Findings Committee white paper (J Am [employer]iol 2018): Any incidental renal lesion less than 1 cm or classified as too small to characterize, or any incidental cystic renal lesion characterized as simple-appearing, is likely benign. No follow-up imaging is recommended for these lesions per consensus recommendations based on imaging criteria.
[2024-04-04 19:04] LABS: Anion Gap 17.5 mEq/L (5-15); Carbon Dioxide 23 mmol/L (22.0-30.0); NT Pro Brain Natriuretic Pep. < 20.0 pg/mL (0-125)
[2024-04-04] MEDS: FAMOTIDINE 20MG/2ML VIAL 20 MG IV (19:05)
[2024-04-04] MEDS: BELLADONNA ALKALOIDS 60 ML ML PO (19:08)
[2024-04-04] MEDS: PROMETHAZINE HCL 25MG/ML 1ML VIAL 25 MG IV (19:08)
[2024-04-04] MEDS: SODIUM CHLORIDE 0.9% 25ML BAG 25 ML IV (19:08)
[2024-04-04 19:16] LABS: Troponin I < 0.01 ng/ml (0.00-0.034)
[2024-04-04] MEDS: IOPAMIDOL-370 (76%);100ML BOTTLE 75 ML IV (20:19)
[2024-04-04] MEDS: SODIUM CHLORIDE 0.9% 10ML SYR (RAD ONLY) 10 ML IV (20:19)
--- NOTE | 2024-04-04 21:30 | PC.NURSE ---
Pt sleepy at discharge Instructed to not drive after Phenergan. Pt verbalized an understanding
== END 2024-04-04 21:31 | disposition home or self-care (01) ==
PROVIDERS: Emergency Provider Emergency Medicine
DX: K20.90 Esophagitis, unspecified without bleeding (principal); R10.13 Epigastric pain; R07.9 Chest pain, unspecified; R11.0 Nausea; M54.9 Dorsalgia, unspecified; E66.01 Morbid (severe) obesity due to excess calories; Z68.42 Body mass index [BMI] 45.0-49.9, adult
CPT/HCPCS: 71045; 74177; 80053; 83690; 83735; 83880; 84484; 85025; 93005; 96374; 96375; 99285; J2550; Q9967; S0028

== ENCOUNTER 2025-03-22 09:24 | Outpatient (CLI) | payer BC, SELFPAY ==
[2025-03-22 14:54] LABS: Coronavirus 19, PCR Not Detected (NotDetected); Influenza A, PCR Not Detected (NotDetected); Influenza B, PCR Not Detected (NotDetected)
== END 2025-03-22 23:59 ==
LOC: LAB.DROPOF 03-26 09:24
PROVIDERS: Visit Provider Nurse Practitioner
DX: J06.9 Acute upper respiratory infection, unspecified (principal)
CPT/HCPCS: 87631